=== PATIENT | male | born 1970 | race Caucasian/White ===

== ENCOUNTER 2017-08-11 06:18 | Inpatient (IN) | payer OTHER, BC ==
[2017-08-07 15:23] VITALS: BMI 29.3
[2017-08-11] MEDS ORDERED: HEPARIN NA (PORCINE) 5,000 UNITS/ML 1ML VIAL ONE (08:04)
[2017-08-11] MEDS ORDERED: THROMBIN (BOVINE) 5,000 UNIT VIAL TP ONE (08:05)
[2017-08-11] MEDS ORDERED: fentaNYL CITRATE 250 MCG/5 ML VIAL ONE ×2 (08:10→11:16)
[2017-08-11] MEDS ORDERED: ROCURONIUM BROMIDE 50 MG/5 ML VIAL ONE ×2 (08:11→09:33)
[2017-08-11] MEDS ORDERED: PROPOFOL 20 ML ONE ×13 (08:11→13:04)
[2017-08-11] MEDS ORDERED: MIDAZOLAM HCL 2 MG/2 ML SINGLE DOSE VIAL ONE (08:11)
[2017-08-11] MEDS ORDERED: LIDOCAINE HCL/PF 2% SDV 5ML VIAL ONE (08:12)
[2017-08-11] MEDS ORDERED: SODIUM CHLORIDE 0.9% P/F 10 ML VIAL IJ ONE ×3 (08:36→11:55)
[2017-08-11] MEDS ORDERED: ceFAZolin SODIUM 1 GM VIAL ONE ×2 (08:36→11:55)
[2017-08-11] MEDS ORDERED: ceFAZolin SODIUM 1 GM VIAL IVPB ONE (08:38)
[2017-08-11] MEDS ORDERED: VANCOMYCIN 1,000 MG VIAL (RESTRICTED TO ID ONLY) ONE (08:40)
[2017-08-11] MEDS ORDERED: TRANEXAMIC ACID 1000 MG/10 ML VIAL ONE ×2 (08:43→10:23)
[2017-08-11] MEDS ORDERED: ONDANSETRON 4 MG/2 ML VIAL ONE (08:43)
[2017-08-11] MEDS ORDERED: VANCOMYCIN 1,000 MG VIAL (RESTRICTED TO ID ONLY) IVPB ONE (08:45)
[2017-08-11] MEDS ORDERED: NEOSTIGMINE METHYLSULFATE 0.5 MG/ML - 10 ML MDV ONE (13:16)
[2017-08-11] MEDS ORDERED: GLYCOPYRROLATE 0.2 MG/1 ML VIAL ONE (13:16)
[2017-08-11] MEDS ORDERED: BENZOIN/ALOE VERA/STORAX/TOLU 58 ML BOTTLE ONE (13:24)
--- NOTE | 2017-08-11 13:54 | PN ---
Progress Note (short form) - Note Progress Note: 46M s/p L4, L5, S1 laminectomies, L4-5 & L5-S1 PLIF, L4-S1 PISF POD #0. -Admit to ICU post-op. 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 -Mechanical DVT PPx. only: MALLORY's, SCD's. -Incentive spirometry; aggressive pulmonary toilet. -PT/OT/Rehab, OOB. -WBAT B/L LE. -f/u drain output. -d/c Chen catheter when ambulating. -NPO until flatus. -Ana-op abx X 24 hrs.: Ancef, Vanc. -Admit to care of medical hospitalist team. -Will follow. Gael Phipps MD (Orthopaedic Surgery).
[2017-08-11] MEDS ORDERED: diazePAM CARPU-JECT 10 MG/2 ML DISP.SYRIN IVPUSH PRN (13:58)
[2017-08-11] MEDS ORDERED: ONDANSETRON 4 MG/2 ML VIAL IVPUSH PRN ×2 (13:58→14:00)
--- NOTE | 2017-08-11 13:58 | OP ---
Operative Note - Note: Operative Date: 08/11/17 Pre-Operative Diagnosis: L4-5, L5-S1 symptomatic spinal stenosis Operation: 1. L4, L5, S1 laminectomies. 2. L4-5 & L5-S1 PLIF. 3. L4-S1 PISF Post-Operative Diagnosis: Same as Pre-op Surgeon: Adal Phipps Supervising Nurse: Gael Phipps (Co-Surgeon) Anesthesiologist/AMBULATORY CARE: [facility] Anesthesia: General Specimens Removed: Bone, soft tissue, disk Estimated Blood Loss (mls): 1,100 Drains & Tubes with Location: 1 x superficial HemoVac Blood Volume Replaced (mls): 500 (Cell Saver) Fluid Volume Replaced (mls): 1,300 Operative Report Dictated: Yes
[2017-08-11] MEDS ORDERED: HYDROmorphone *PCA* 10MG/50ML DISP.SYRIN PCA SCH (14:00)
[2017-08-11] MEDS ORDERED: PROMETHAZINE HCL 25 MG/1 ML VIAL IVPB PRN (14:00)
[2017-08-11] MEDS ORDERED: LACTATED RINGERS SOLUTION 1,000 ML IV SCH (14:00)
[2017-08-11] MEDS ORDERED: DEXAMETHASONE SOD PHOSPHATE 4 MG/1 ML VIAL IVPUSH PRN (14:00)
[2017-08-11] MEDS ORDERED: HYDROmorphone *PCA* 6MG/30ML DISP.SYRIN PCA ONE ×2 (14:07→19:54)
[2017-08-11] MEDS: ACETAMINOPHEN 1000 MG/100 ML VIAL (NON FORMULARY) IVPB SCH ×2 (14:20→22:13)
[2017-08-11] MEDS: LACTATED RINGERS SOLUTION 1,000 ML IV SCH (15:20)
[2017-08-11] MEDS ORDERED: LORazepam 2 MG/ML SDV VIAL IVPUSH PRN (16:05)
[2017-08-11] MEDS: ALBUTEROL SO4 18 GM HFA INHALER IH SCH ×3 (16:10→22:26)
[2017-08-11] MEDS: HYDROmorphone *PCA* 6MG/30ML DISP.SYRIN PCA SCH ×2 (16:12→20:33)
[2017-08-11] MEDS ORDERED: KETOROLAC TROMETHAMINE 30 MG/1 ML VIAL IVPUSH ONE (16:35)
--- NOTE | 2017-08-11 17:11 | CONSULT ---
Consultation: REQUESTING PROVIDER: CONSULT REQUEST: We have been asked to medically evaluate this patient for post- op management. HISTORY OF PRESENT ILLNESS: 46M with PMH of back pain, PTSD, anxiety, chronic sinusitis (first-responder on 01/27), presents for back surgery with Dr. Phipps. Surgery went well, 500ml blood loss. Pt endorses significant back pain now. Pt reports no bowel movement in 2 days related to nerves regarding upcoming surgery. Pt denies fever, chills, headache, nausea, vomiting, sob, chest pain, abdominal pain. 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 [employer] REVIEW OF SYSTEMS: CONSTITUTIONAL: Absent: fever, chills, diaphoresis, generalized weakness HEENT: Absent: rhinorrhea, nasal congestion, throat pain, ear pain, eye pain, visual changes CARDIOVASCULAR: Absent: chest pain, palpitations, irregular heart rate, lightheadedness, peripheral edema RESPIRATORY: Absent: cough, shortness of breath, wheezing, stridor, hemoptysis GASTROINTESTINAL: Absent: abdominal pain, abdominal distension, nausea, vomiting, diarrhea, constipation GENITOURINARY: Absent: dysuria, frequency, hematuria MUSCULOSKELETAL: back pain Absent: joint swelling, neck pain SKIN: Absent: rash, itching, pallor HEMATOLOGIC/IMMUNOLOGIC: Absent: easy bleeding, easy bruising, lymphadenopathy NEUROLOGIC: Absent: headache, focal weakness or paresthesias, dizziness PSYCHIATRIC: anxiety Absent: depression, suicidal or homicidal ideation, hallucinations. PHYSICAL EXAMINATION Vital Signs - 24 hr 08/11/17 08/11/17 08/11/17 07:19 07:20 13:49 Temperature 98.1 F 97.7 F Pulse Rate 84 100 H Respiratory 16 18 Rate Blood Pressure 130/88 107/72 O2 Sat by Pulse 100 98 Oximetry (%) 08/11/17 08/11/17 08/11/17 14:05 14:15 14:20 Temperature Pulse Rate 93 H 80 80 Respiratory 16 16 16 Rate Blood Pressure 109/75 93/64 93/64 O2 Sat by Pulse 100 100 Oximetry (%) 08/11/17 08/11/17 08/11/17 14:35 14:45 14:50 Temperature Pulse Rate 91 H 80 80 Respiratory 16 16 16 Rate Blood Pressure 108/64 99/72 99/72 O2 Sat by Pulse 100 100 Oximetry (%) 08/11/17 08/11/17 08/11/17 15:05 15:20 15:35 Temperature 98.0 F 98.4 F Pulse Rate 83 74 88 Respiratory 16 18 10 L Rate Blood Pressure 100/76 113/72 111/75 O2 Sat by Pulse 100 97 Oximetry (%) 08/11/17 16:00 Temperature 98.4 F Pulse Rate 92 H Respiratory 10 L Rate Blood Pressure 111/75 O2 Sat by Pulse Oximetry (%) GENERAL: Awake, alert, and fully oriented, in no acute distress. LUNGS: Breath sounds equal, clear to auscultation bilaterally. No wheezes, and no crackles. No accessory muscle use. HEART: Regular rate and rhythm, normal S1 and S2 without murmur, rub or gallop. ABDOMEN: Soft, nontender, not distended, normoactive bowel sounds, no guarding. BACK: incision not visualized. 1 superficial HemoVac drain present. LOWER EXTREMITIES: Warm, well-perfused. No calf tenderness. No peripheral edema. NEUROLOGICAL: Cranial nerves II-XII grossly intact. No facial droop. Able to move all 4 extremities. Sensation intact and symmetric throughout. Normal speech. PSYCHIATRIC: Cooperative. Good eye contact. Appropriate mood and affect. SKIN: Warm, dry, normal turgor, no rashes or lesions noted. Laboratory Results - last 24 hr 08/11/17 06:32 Blood Type A POSITIVE Antibody Screen Negative Active Medications Generic Name Dose Route Start Last Admin Trade Name Freq PRN Reason Stop Dose Admin Acetaminophen 1,000 mg 08/11/17 14:00 08/11/17 14:20 Ofirmev Injection - IVPB 08/12/17 06:01 1,000 mg Q8H MARISELA Administration Albuterol Sulfate 1 - 2 puff 08/11/17 14:00 08/11/17 16:10 Ventolin Hfa Inhaler - IH Not Given QID [facility] Cefazolin Sodium/Dextrose 2 gm 08/11/17 23:00 Ancef 2 Gm Premixed Ivpb - IVPB 08/12/17 07:01 Q8H [facility] Dexamethasone Sodium Phosphate 4 mg 08/11/17 14:00 Decadron Injection - IVPUSH ONCE PRN NAUSEA AND/OR VOMITING Fentanyl 50 mcg 08/11/17 13:59 08/11/17 14:10 Sublimaze Injection - IVPUSH 50 mcg [id number] PRN Administration PAIN-PACU ORDER X 4 DOSES ONLY Hydromorphone HCl 0 mg 08/11/17 15:32 08/11/17 16:12 Dilaudid Vice Investigator - LANGUAGE PATHOLOGIST 08/18/17 14:00 Not Given LANGUAGE PATHOLOGIST MARISELA Protocol Lactated Ringer's 1,000 mls @ 100 mls/hr 08/11/17 14:00 08/11/17 15:20 Lactated Ringers Solution IV 0 mls ASDIR MARISELA Administration Vancomycin HCl 1,000 mg/ 250 mls @ 250 mls/hr 08/11/17 20:00 Dextrose IVPB 08/11/17 20:59 ONCE ONE Lorazepam 2 mg 08/11/17 16:05 Ativan Injection - IVPUSH Q6H PRN ANXIETY Ondansetron HCl 4 mg 08/11/17 13:58 Zofran Injection IVPUSH Q6H PRN NAUSEA AND/OR VOMITING Ondansetron HCl 4 mg 08/11/17 14:00 Zofran Injection IVPUSH Q4H PRN NAUSEA AND/OR VOMITING Promethazine HCl 12.5 mg 08/11/17 14:00 Phenergan Injection - IVPB Q6H PRN NAUSEA AND/OR VOMITING Zolpidem Tartrate 10 mg 08/11/17 22:00 Ambien - PO HS PRN INSOMNIA ASSESSMENT/PLAN: 46M with PMH of back pain, PTSD, anxiety, chronic sinusitis (first-responder on 01/27), presents for back surgery with Dr. Phipps. # back surgery - s/p L4/L5/S1 laminectomies, L4-5 and L5-S1 PLIF, L4-S1 Posterior Instrumented Spinal Fusion - POD #0 - post-op care per Dr. Phipps: WBAT, OOB, - Ana-op antibiotics x 24 hrs: Ancef and Vancomycin - pain control with Dilaudid LANGUAGE PATHOLOGIST pump (0mg basal rate, 0.2mg demand) and Ofirmev q8hr x 3 doses - Incentive spirometry - f/u drain output - Zofran prn for nausea # chronic sinusitis - continue home med of Albuterol - consider resuming home med of Claritin # anxiety - continue home med of Xanax # insomnia - continue home med of Ambien # FEN - Fluids: LR @ 100 ml/hr - Electrolytes: will monitor - Nutrition: npo until flatus # Prophylaxis - DVT ppx with susan SCDs - deconditioning ppx with PT Dispo: We will continue to follow the patient. Thank you for this consultative opportunity. Visit type - Emergency Visit Emergency Visit: Yes ED Registration Date: 08/11/17 Care time: The patient presented to the Emergency Department on the above date and was hospitalized for further evaluation of their emergent condition. - New Patient This patient is new to me today: Yes Date on this admission: 08/11/17 - Critical Care Critical Care patient: Yes Total Critical Care Time (in minutes): 45 Critical Care Statement: The care of this patient involved high complexity decision making to prevent further life threatening deterioration of the patient 's condition and/or to evaluate & treat vital organ system(s) failure or risk of failure.
--- NOTE | 2017-08-11 17:49 | HP ---
CHIEF COMPLAINT: "i just had back surgery and im in pain" HISTORY OF PRESENT ILLNESS: This is a 46 yo M with PMH of back pain s/p discsectomy L3-S1 2011, PTSD, migraine, anxiety, chronic sinusitis whp presents POD 0 s/p L4/L5/S1 laminectomies, L4-5 and L5-S1 PLIF, L4-S1 Posterior Instrumented Spinal Fusion. Surgery was uncomplicated with 500cc blood loss. back pain begain in 2011 due to job related injury and has not been alleviated by initial surgery for any significant amount of time. He reports pain radiating down bpoth legs with LLE weakness > RLE, b/l toe numbness, walks with limp and uses cane to get out of car. Max walking distance 1-3 [address] due to pain. Takes oxycodone 30 for pain PRN. Denies saddle anesthesia or loss of bowel control. He currently reports 10/10 back pain radiating to both lateral thighs when lying flat, alleviated by lying on the side. Last BM was 2 days ago but denies chronic constipation. has history of frequents sinus infections for which he is often on augmentin, last dose sat. he denies f/c, h/a, CP, spb, n/v/d, abd pain. 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 Smoking: denies Alcohol: denies Drugs: denies Family History: noncontributory Allergies prednisone Adverse Reaction (Mild, Verified 08/07/17 15:26) Hives "hives around buttocks and waist when combined with other meds" took prednisone two months ago without a reaction HOME MEDICATIONS: Home Medications Medication Instructions Recorded Acetaminophen/Caffeine/Butalb 1 tab PO Q4H 08/07/17 [Fioricet -] Albuterol Sulfate Inhaler - 1 - 2 inh PO QID 08/07/17 [Ventolin Hfa Inhaler -] Alprazolam [Xanax] 2 mg PO PRN 08/07/17 Amoxicillin - [Amoxicillin 875mg 875 mg PO BID 08/07/17 Tablet -] Loratadine [Claritin -] 10 mg PO DAILY 08/07/17 Oxycodone HCl [Oxycodone HCl ER] 30 mg PO BID 08/07/17 Zolpidem Tartrate 10 mg PO HS 08/07/17 REVIEW OF SYSTEMS CONSTITUTIONAL: Absent: fever, chills, diaphoresis, loss of appetite, weight change HEENT: Absent: throat pain, difficulty swallowing, visual changes CARDIOVASCULAR: Absent: chest pain, syncope, palpitations, irregular heart rate RESPIRATORY: Absent: cough, shortness of breath, GASTROINTESTINAL: Absent: abdominal pain, abdominal distension, nausea, vomiting, diarrhea GENITOURINARY: Absent: dysuria MUSCULOSKELETAL: Absent: myalgia SKIN: Absent: rash, itching, pallor HEMATOLOGIC/IMMUNOLOGIC: Absent: easy bleeding, easy bruising ENDOCRINE: Absent: unexplained weight gain, unexplained weight loss NEUROLOGIC: Absent: headache, seizure, mental status changes, bladder or bowel incontinence PSYCHIATRIC: Absent: anxiety, depression PHYSICAL EXAMINATION Vital Signs - 24 hr 08/11/17 08/11/17 08/11/17 07:19 07:20 13:49 Temperature 98.1 F 97.7 F Pulse Rate 84 100 H Respiratory 16 18 Rate Blood Pressure 130/88 107/72 O2 Sat by Pulse 100 98 Oximetry (%) 08/11/17 08/11/17 08/11/17 14:05 14:15 14:20 Temperature Pulse Rate 93 H 80 80 Respiratory 16 16 16 Rate Blood Pressure 109/75 93/64 93/64 O2 Sat by Pulse 100 100 Oximetry (%) 08/11/17 08/11/17 08/11/17 14:35 14:45 14:50 Temperature Pulse Rate 91 H 80 80 Respiratory 16 16 16 Rate Blood Pressure 108/64 99/72 99/72 O2 Sat by Pulse 100 100 Oximetry (%) 08/11/17 08/11/17 08/11/17 15:05 15:20 15:35 Temperature 98.0 F 98.4 F Pulse Rate 83 74 88 Respiratory 16 18 10 L Rate Blood Pressure 100/76 113/72 111/75 O2 Sat by Pulse 100 99 Oximetry (%) 08/11/17 08/11/17 16:00 16:15 Temperature 98.4 F Pulse Rate 92 H 88 Respiratory 10 L 10 L Rate Blood Pressure 111/75 111/75 O2 Sat by Pulse Oximetry (%) GENERAL: Awake, alert, and fully oriented, in no acute distress. HEAD: Normal with no signs of trauma. EYES: Pupils equal, round and reactive to light, extraocular movements intact, sclera anicteric, conjunctiva clear. No lid lag. EARS, NOSE, THROAT: nares patent, oropharynx with postnasal drip. Moist mucous membranes. NECK: supple LUNGS: Breath sounds equal, clear to auscultation bilaterally. HEART: tachy rate and regular rhythm, normal S1 and S2 ABDOMEN: Soft, nontender, not distended, normoactive bowel sounds, no guarding, no rebound, no masses. MUSCULOSKELETAL: No CVA tenderness. Drain in place with saguineous discharge UPPER EXTREMITIES: 2+ pulses, warm, well-perfused. No cyanosis. No clubbing. No peripheral edema. LOWER EXTREMITIES: 2+ pulses, warm, well-perfused. No calf tenderness. No peripheral edema. NEUROLOGICAL: Cranial nerves II-XII intact. Normal speech. 5/5 srengt UE b/l. 4 + strenght RLE, 4- strenght LLE, slight numbness L toes, 1+ patellar reflexes b/ l PSYCHIATRIC: Cooperative. Good eye contact. Appropriate mood and affect. SKIN: Warm, dry Laboratory Results - last 24 hr 08/11/17 06:32 Blood Type A POSITIVE Antibody Screen Negative ASSESSMENT/PLAN: This is a 46 yo M with PMH of back pain s/p discsectomy L3-S1 2012, PTSD, migraine, anxiety, chronic sinusitis whp presents POD 0 s/p L4/L5/S1 laminectomies, L4-5 and L5-S1 PLIF, L4-S1 Posterior Instrumented Spinal Fusion. Chronic back pain POD 0 s/p L4/L5/S1 laminectomies, L4-5 and L5-S1 PLIF, L4-S1 Posterior Instrumented Spinal Fusion -Dr Phipps instructions appreciated -WBAT, OOB, -Ancef, Vancomycin x 24 hr -IV tylenol, Dilaudid SEISMOGRAPH COMPUTER, fentanyl -Zofran prn -NS @ 100 -strict I and O -NPO until passes flatus -incentive spirometry Constipation -secondary to opiates -colace, IV hydration chronic sinusitis -no acute symptoms Asthma -albuterol nebs prn anxiety -ativan PRN Insomnia -ambien HS PPX: SCDs Dispo: ICU care Problem List - Problem (1) Back pain Code(s): M54.9 - DORSALGIA, UNSPECIFIED (2) Previous back surgery Code(s): Z98.890 - OTHER SPECIFIED POSTPROCEDURAL STATES (3) H/O spinal fusion Code(s): Z98.1 - ARTHRODESIS STATUS (4) Post-operative nausea and vomiting Code(s): R11.2 - NAUSEA WITH VOMITING, UNSPECIFIED; Z98.890 - OTHER SPECIFIED POSTPROCEDURAL STATES (5) Anxiety Code(s): F41.9 - ANXIETY DISORDER, UNSPECIFIED (6) Sinusitis Code(s): J32.9 - CHRONIC SINUSITIS, UNSPECIFIED (7) Insomnia Code(s): G47.00 - INSOMNIA, UNSPECIFIED (8) PTSD (post-traumatic stress disorder) Code(s): F43.10 - POST-TRAUMATIC STRESS DISORDER, UNSPECIFIED Visit type - Emergency Visit Emergency Visit: No - New Patient This patient is new to me today: Yes Date on this admission: 08/11/17 - Critical Care Critical Care patient: Yes Total Critical Care Time (in minutes): 45 Critical Care Statement: The care of this patient involved high complexity decision making to prevent further life threatening deterioration of the patient 's condition and/or to evaluate & treat vital organ system(s) failure or risk of failure.
[2017-08-11 18:27] LABS: BASO % 0.5 % (0-2.0); EOS % 1.9 % (0-4.5); HEMOGLOBIN 13.3 GM/dL (11.7-16.9); LYMPH % 19.3 % (8-40); MCH 26.9 pg (25.7-33.7); MCHC 34.2 g/dl (32.0-35.9); MEAN CELL VOLUME 78.7 fl (80-96); MEAN PLT VOLUME 9.4 fl (7.5-11.1); MONO % 7.2 % (3.8-10.2); NEUT % 71.1 % (42.8-82.8); PLATELET COUNT 133 K/MM3 (134-434); RBC 4.96 M/mm3 (4.00-5.60); RDW 13.2 % (11.9-15.9); WHITE BLOOD COUNT 11.1 K/mm3 (4.0-10.0)
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
[2017-08-11] MEDS: LORazepam 2 MG/ML SDV VIAL IVPUSH PRN (18:56)
[2017-08-11] MEDS: LORATADINE 10 MG TABLET PO SCH (18:58)
[2017-08-11] MEDS: DOCUSATE SODIUM 100 MG CAPSULE (FP) PO SCH (18:58)
[2017-08-11] MEDS ORDERED: ALBUTEROL SO4 0.083% IH SOL 2.5 MG/3 ML VIAL.NEB. NEB PRN (19:00)
[2017-08-11 19:08] LABS: ALBUMIN 3.1 g/dl (3.4-5.0); ANION GAP 6 (8-16); BLOOD UREA NITROGEN 19 mg/dL (7-18); CALCIUM 7.8 mg/dL (8.5-10.1); CHLORIDE 108 mmol/L (98-107); CO2 26 mmol/L (21-32); GLUCOSE,RANDOM 103 mg/dL (74-106); MAGNESIUM 1.7 mg/dL (1.8-2.4); PHOSPHOROUS 4.5 mg/dL (2.5-4.9); POTASSIUM 4.2 mmol/L (3.5-5.1); SGOT/AST 33 U/L (15-37); SGPT/ALT 36 U/L (12-78); SODIUM 140 mmol/L (136-145); TOT PROT 5.3 g/dl (6.4-8.2)
[2017-08-11 19:09] LABS: ALK PHOS 72 U/L (45-117)
--- NOTE | 2017-08-11 19:12 | PN ---
Teaching Attending Note Name of Resident: Ventura Corona ATTENDING PHYSICIAN STATEMENT I saw and evaluated the patient. I reviewed the resident's note and discussed the case with the resident. I agree with the resident's findings and plan as documented. SUBJECTIVE: 46 y/o man with h/o PTSD, lower back pain s/p discectomy in 2011, chronic sinusitis and anxiety who presented for lower back surgery now s/p L4-s1 decompression and fusion . now in ICU. after his sx in he felt better, then condition worsened and developed lower back pain with shooting pain down his groins and legs withnumbness in lE . now he feels some pain in lower back , anxious , no numbness, no pain in LE . he reports asthma sx daily with nocturnal use of his Alb every night . only on Alb inhaler OBJECTIVE: NAD , AAOx3. HEENT: MMM, no ALAP , EOMI Lungs: scatered wheezes. CV; RRR Abd: sfot, NT, ND < NL BS Ext: no edema Neuro: EOMI, round equal pupils reactive to light , tongue at mid line . strength 5/5 in upper ext proximally and distally. LE : 4/5 in hip flexion b/l. knee flexion and ankle dorsiflexion/plantar flexion b/l. sensation to ligh ttouch decreased on L big toe otherwise NL. reflexes 2+ knee jerk and biceps b/l ASSESSMENT AND PLAN: 46 y/o man with h/o PTSD, lower back pain s/p discectomy in 2011, chronic sinusitis and anxiety who presented for L4-S1 decompression and fusion 1- S/P L4-S1 decompression and fusion : POD 0 - WBAT - pain control - NPO until flatus - follow drain - obtain labs and monitor Hb 2-chronic Moderate persistent Asthma : - start Albuterol Nebs as needed - start Advair BID 3- h/o PTSD and anxiety : ativan PRN. 4- DVT PX : SCds /Teds .
[2017-08-11] MEDS ORDERED: VANCOMYCIN 1 GRAM (PRE-DOCKED) 1,000 MG/250 ML BAG IVPB ONE (20:00)
[2017-08-11] MEDS ORDERED: VANCOMYCIN 1,000 MG in DEXTROSE 5%-WATER - 250 ML IVPB ONE (20:00)
[2017-08-11] MEDS ORDERED: MAGNESIUM SULF 50% (8.12 MEQ/2 ML-1 GM VIAL) IVPB ONE (20:34)
--- NOTE | 2017-08-11 21:06 | CONSULT ---
Consult Consult Specialty:: Pulm/CCM Reason for Consultation:: s/p L4-S1 decompression and fusion. - History of Present Illness Chief Complaint: back pain History of Present Illness: This is a 46 yo man w/ Asthma, chronic sinusitis, anxiety, PTSD r/t 01/27, lower back pain w/ numbness s/p discectomy in 2011 now POD #0: L4-s1 decompression and fusion. Transferred to the ICU Post operatively. In the ICU he is awake and alert denies: ARCE/CP/SOB/n/v/ numbness mild pain at surgical site. One exam Shant drain w/ sanguineous drainage noted. - Past Medical History Pulmonary: Yes: Asthma, Other (chronic sinusitis ) Musculoskeletal: Yes: Chronic low back pain - Past Surgical History Past Surgical History: Yes: Laminectomy - Alcohol/Substance Use Hx Alcohol Use: No - Smoking History Smoking history: Never smoked - Social History Usual Living Arrangement: With Spouse ADL: Independent Home Medications - Allergies Allergies/Adverse Reactions: Allergies Allergy/AdvReac Type Severity Reaction Status Date / Time prednisone AdvReac Mild Hives Verified 08/07/17 15:26 - Home Medications Home Medications: Ambulatory Orders Acetaminophen/Caffeine/Butalb [Fioricet -] 1 tab PO Q4H 08/07/17 Albuterol Sulfate Inhaler - [Ventolin Hfa Inhaler -] 1 - 2 inh PO QID 08/07/17 Alprazolam [Xanax] 2 mg PO PRN 08/07/17 Amoxicillin - [Amoxicillin 875mg Tablet -] 875 mg PO BID 08/07/17 Loratadine [Claritin -] 10 mg PO DAILY 08/07/17 Oxycodone HCl [Oxycodone HCl ER] 30 mg PO BID 08/07/17 Zolpidem Tartrate 10 mg PO HS 08/07/17 Family Disease History - Family Disease History Family History: Unremarkable Review of Systems - Review of Systems Constitutional: reports: No Symptoms Respiratory: reports: Cough Neurological: reports: No Symptoms Psychiatric: reports: Anxiety, Other (PTSD) Physical Exam Vital Signs: Vital Signs Temperature 98.3 F 08/11/17 18:00 Pulse Rate 112 H 08/11/17 19:50 Respiratory Rate 15 08/11/17 19:50 Blood Pressure 132/81 08/11/17 19:50 O2 Sat by Pulse Oximetry (%) 99 08/11/17 15:35 Current Medications Acetaminophen (Ofirmev Injection -) 1,000 mg IVPB Q8H [facility] Stop: 08/12/17 06:01 Last Admin: 08/11/17 14:20 Dose: 1,000 mg Albuterol Sulfate (Ventolin Hfa Inhaler -) 1 - 2 puff IH QID [facility] Last Admin: 08/11/17 18:00 Dose: Not Given Albuterol Sulfate (Ventolin 0.083% Nebulizer Soln -) 1 amp NEB Q4H PRN PRN Reason: SHORT OF BREATH/WHEEZING Cefazolin Sodium/Dextrose (Ancef 2 Gm Premixed Ivpb -) 2 gm IVPB Q8H [facility] Stop: 08/12/17 07:01 Docusate Sodium (Colace -) 100 mg PO DAILY [facility] Last Admin: 08/11/17 18:58 Dose: Not Given Fentanyl (Sublimaze Injection -) 50 mcg IVPUSH [id number] PRN PRN Reason: PAIN-PACU ORDER X 4 DOSES ONLY Last Admin: 08/11/17 14:10 Dose: 50 mcg Hydromorphone HCl (Dilaudid Filler Picker -) 0 mg STOCKHOLDER STOCKHOLDER [facility] PRN Reason: Protocol Stop: 08/18/17 14:00 Last Admin: 08/11/17 20:33 Dose: 6 mg Lactated Ringer's (Lactated Ringers Solution) 1,000 mls @ 100 mls/hr IV ASDIR [facility] Last Admin: 08/11/17 15:20 Dose: 0 mls Loratadine (Claritin -) 10 mg PO DAILY [facility] Last Admin: 08/11/17 18:58 Dose: Not Given Lorazepam (Ativan Injection -) 0.5 mg IVPUSH Q6H PRN PRN Reason: ANXIETY Last Admin: 08/11/17 18:56 Dose: 0.5 mg Ondansetron HCl (Zofran Injection) 4 mg IVPUSH Q6H PRN PRN Reason: NAUSEA AND/OR VOMITING Fluticasone/Salmeterol (Advair 100mcg/50mcg -) 1 puff IH BID [facility] Zolpidem Tartrate (Ambien -) 10 mg PO HS PRN PRN Reason: INSOMNIA Constitutional: Yes: Well Nourished, No Distress, Calm Eyes: Yes: Conjunctiva Clear, EOM Intact HENT: Yes: Normocephalic Cardiovascular: Yes: Regular Rate and Rhythm, S1 Respiratory: Yes: Wheezes Gastrointestinal: Yes: Normal Bowel Sounds, Soft Extremities: Yes: WNL Edema: No Integumentary: Yes: Tattoos Wound/Incision: Yes: Clean/Dry Neurological: Yes: WNL, Alert, Oriented Psychiatric: Yes: Alert, Oriented Labs: CBC, BMP 08/11/17 18:21 08/11/17 18:21 Problem List - Problems (1) Asthma Code(s): J45.909 - UNSPECIFIED ASTHMA, UNCOMPLICATED (2) Anxiety Code(s): F41.9 - ANXIETY DISORDER, UNSPECIFIED (3) Back pain Code(s): M54.9 - DORSALGIA, UNSPECIFIED (4) H/O spinal fusion Code(s): Z98.1 - ARTHRODESIS STATUS (5) PTSD (post-traumatic stress disorder) Code(s): F43.10 - POST-TRAUMATIC STRESS DISORDER, UNSPECIFIED Assessment/Plan a/p: 46 yo man w/ asthma, chronic sinusitis, anxiety, PTSD r/t 01/27, lower back pain w/ numbness s/p discectomy in 2012 now POD #0: L4-s1 decompression and fusion. -pain control -anxiolisis prn -bowel regimen -advance activity per surgery -NPO until flatus -02 for sat >90% -Albuterol prn -Incentive spirometry -early PT/OT -trend Hgb post op w/ normal transfusion thresholds -monitor surgical drainage -glucose control -SCD for DVT prophylaxis until chemoprophylaxis ok by surgery Natasha BAUTISTA Pulm/CCM CCT: 35m.
[2017-08-11] MEDS ORDERED: MAGNESIUM SULF 50% (8.12 MEQ/2 ML-1 GM VIAL) ONE (22:09)
[2017-08-11] MEDS: FLUTICASONE/SALMETEROL 100 MCG/50 MCG DISKUS IH SCH (22:14)
[2017-08-11] MEDS: ceFAZolin 2 GRAM PREMIX BAG IVPB SCH (22:14)
[2017-08-11] MEDS ORDERED: ALPRAZolam 0.25 MG TABLET PO ONE (22:37)
[2017-08-11] MEDS: ZOLPIDEM TARTRATE 5 MG TABLET PO PRN (22:44)
[2017-08-12] MEDS ORDERED: KETOROLAC TROMETHAMINE 30 MG/1 ML VIAL IVPUSH ONE (01:46)
[2017-08-12] MEDS ORDERED: ALBUTEROL SO4 18 GM HFA INHALER IH PRN (01:48)
[2017-08-12] MEDS ORDERED: HYDROmorphone *PCA* 6MG/30ML DISP.SYRIN PCA ONE ×2 (05:35→16:05)
[2017-08-12] MEDS: HYDROmorphone *PCA* 6MG/30ML DISP.SYRIN PCA SCH ×7 (05:39→17:39)
[2017-08-12] MEDS: ACETAMINOPHEN 1000 MG/100 ML VIAL (NON FORMULARY) IVPB SCH (05:40)
[2017-08-12] MEDS: ceFAZolin 2 GRAM PREMIX BAG IVPB SCH (06:11)
[2017-08-12 07:00] LABS: HEMATOCRIT 35.6 % (35.4-49); HEMOGLOBIN 11.9 GM/dL (11.7-16.9); MCH 26.8 pg (25.7-33.7); MCHC 33.4 g/dl (32.0-35.9); MEAN CELL VOLUME 80.3 fl (80-96); MEAN PLT VOLUME 10.1 fl (7.5-11.1); PLATELET COUNT 108 K/MM3 (134-434); RBC 4.43 M/mm3 (4.00-5.60); RDW 13.4 % (11.9-15.9); WHITE BLOOD COUNT 7.7 K/mm3 (4.0-10.0)
[2017-08-12 07:16] LABS: ANION GAP 7 (8-16); BLOOD UREA NITROGEN 18 mg/dL (7-18); CALCIUM 7.8 mg/dL (8.5-10.1); CHLORIDE 103 mmol/L (98-107); CO2 30 mmol/L (21-32); CREATININE 0.9 mg/dL (0.7-1.3); GLUCOSE,RANDOM 102 mg/dL (74-106); POTASSIUM 4.4 mmol/L (3.5-5.1); SODIUM 140 mmol/L (136-145)
[2017-08-12] MEDS: DOCUSATE SODIUM 100 MG CAPSULE (FP) PO SCH (09:50)
[2017-08-12] MEDS: FLUTICASONE/SALMETEROL 100 MCG/50 MCG DISKUS IH SCH ×2 (09:50→22:25)
--- NOTE | 2017-08-12 09:53 | OP ---
DATE OF OPERATION: 08/11/2017 SURGEON: Adal Phipps MD CO-SURGEON: Gael Phipps MD PREOPERATIVE DIAGNOSIS: Lumbar spine stenosis due to previously failed spinal surgery with associated lumbar spinal stenosis at L4-5, L5-S1 secondary to diskogenic disease and associated segmental instability and kyphosis. POSTOPERATIVE DIAGNOSIS: Lumbar spine stenosis due to previously failed spinal surgery with associated lumbar spinal stenosis at L4-5, L5-S1 secondary to diskogenic disease and associated segmental instability and kyphosis. OPERATION PERFORMED: 1. Laminectomy and undercutting facetectomy, L4 and L5. 2. Posterior lumbar interbody fusion, L4-5 and L5-S1. 3. Insertion of cages, L4-5 and L5-S1 with autologous bone graft. 4. Pedicle screw instrumentation, L4, L5, S1. 5. Posterolateral arthrodesis at L4, L5, S1. 6. Austin-Otero osteotomy, L4-5, left- and right-hand side. 7. Complex wound closure, 15 cm. ANESTHESIA: General. ANTIBIOTICS GIVEN: Kefzol 2 g, vancomycin 1 g preoperative, Kefzol 1 g given intraoperatively. Use of biplane fluoroscopy and intraoperative neuromonitoring utilized. BLOOD LOSS: 1.1 L; 500 mL Cell Saver blood given back to the patient. PROCEDURE: Patient correctly identified, brought in the operating room. Lumbar spine was prepped and window draped in the routine manner with Betadine scrub solution, wiped off with alcohol, DuraPrep applied. A timeout was called. Imaging was available for intraoperative evaluation. Indications, preoperative assessment for a long period of time this gentleman had a previous left-sided hemilaminotomy with diskectomy resulting in severe segmental instability and entrapment of the L5 nerve root due to L5-S1 disk degeneration, Modic level 4 changes indicative of the segmental instability, but with the passage of time, the L4-5 disk had degenerated with a large disk prolapse at that level as well. We elected to deal with this problem as well. Otherwise, he would have to return to the operating room for repeat operation. Midline incision was utilized. Dissection was taken down to the tip of the spinous process, down the spinous processes, over the lamina, exposing the facet joints of L4, L5, S1 right to the ala of the sacrum both left- and right-hand side. Subperiosteal dissection performed. Verification of levels of the lateral fluoroscopic x-rays as well as utilization of anatomical guidelines. Using Leksell rongeurs, Kerrison upcuts, as well as osteotomes to implode the lateral bone bed of the vertebral canal inwards, intervertebral canal, the entire lamina of L4 and L5 were removed, exposing the dura. No complications. With this, the superior facets were completely resected, thus providing an undercutting facetectomy and freeing the nerve roots appropriately. From the right-hand side, the disks of L4-5 and L5-S1 were identified. Epidural veins were dealt with with bipolar Bovie. The theca was retracted from right to left at the both above-mentioned levels. An annulotomy performed with an 11 blade at the L4-5 and L5-S1 disks performed in the exact same manner. Each disk was dealt with as follows. Margaret were inserted. At L4-5 and L5-S1, we used cages called TETRAfuse. Prior to the insertion of the TETRAfuse cages, the interdisk space which was completely cleared of soft tissue, this enabled packing of bone with graft. This was autologous bone graft harvested from the posterior elements, milled in a [employer] mill. The L4-5 was filled with a size 14 TETRAfuse cage. This was packed with bone graft as was the size 11 cage at L5-S1. A Austin-Otero osteotomy was performed by completely transecting the bony structures laterally to enhance a lordosis. Pedicle screws L4, L5, S1 were inserted. These measured 40 x 6.5 mm screws. Each screw was tested with intraoperative neuromonitoring, found to be completely stable and safe, well above the normal parameters for dangerous parameters. That is each measurement was well above 20 mA. Rods were contoured to the screw heads, fixed and tightened with the appropriate screw caps and the torque device. A crosslink applied. The wounds were thoroughly lavaged. Pedicle screws were all inserted by Dr. Gael Phipps as the co-surgeon. The posterolateral arthrodesis by retracting the soft tissues left- and right-hand side. The transverse processes were exposed, and a combination of autologous as well as allograft bone was inserted. Bone marrow aspirate concentrate utilized to mix into the bone graft. This was harvested from the left posterior ilium, 60 mL, was spun for the CD34 cells, mixed with the graft, packed into the interspinous process from the ala, right up to L4 left- and right-hand side. The wounds were thoroughly lavaged throughout the operation. The muscle was trimmed appropriately for damaged muscle. Following the use of retractors, closure was a complex wound closure was a measurement for 15 cm. This was with muscle 1 Vicryl fascia, 1 Vicryl subcutaneous, 1 and 2-0 Vicryl in separate layers, and a 3-0 Monocryl with Steri-Strips. Drainage: 1/8-inch Hemovac x1. MD ZEYNEP [id number]
[2017-08-12] MEDS: LORATADINE 10 MG TABLET PO SCH (09:58)
[2017-08-12] MEDS ORDERED: HYDROmorphone HCL CARPU-JECT 1 MG/1 ML DISP.SYRIN IVPUSH ONE (11:39)
--- NOTE | 2017-08-12 12:02 | PN ---
Teaching Attending Note Name of Resident: Albert Vazquez ATTENDING PHYSICIAN STATEMENT I saw and evaluated the patient. I reviewed the resident's note and discussed the case with the resident. I agree with the resident's findings and plan as documented. SUBJECTIVE: Pt seen and examined in the ICU. Pain not controlled. No nausea, vomiting. No flatus or bowel movements. OBJECTIVE: Last Vital Signs Temp Pulse Resp BP Pulse Ox 99.9 F H 91 H 16 126/80 99 08/12/17 10:00 08/12/17 11:51 08/12/17 11:51 08/12/17 11:51 08/12/17 08:56 Intake & Output 08/09/17 08/10/17 08/11/17 08/12/17 23:59 23:59 23:59 23:59 Intake Total 2950 1250 Output Total 1840 830 Balance 1110 420 Gen: uncomfortable with movements Heart: RRR Lung: decreased breath sounds at the bases Abd: soft, nontender, +BS Ext: no edema CBC, BMP 08/12/17 05:50 08/12/17 05:50 Active Medications Albuterol Sulfate (Ventolin 0.083% Nebulizer Soln -) 1 amp NEB Q4H PRN PRN Reason: SHORT OF BREATH/WHEEZING Albuterol Sulfate (Ventolin Hfa Inhaler -) 2 puff IH Q6H PRN PRN Reason: SHORT OF BREATH/WHEEZING Docusate Sodium (Colace -) 100 mg PO DAILY [facility] Last Admin: 08/12/17 09:50 Dose: 100 mg Fentanyl (Sublimaze Injection -) 50 mcg IVPUSH [id number] PRN PRN Reason: PAIN-PACU ORDER X 4 DOSES ONLY Last Admin: 08/11/17 14:10 Dose: 50 mcg Hydromorphone HCl (Dilaudid Pricing Strategist -) 6 mg FORGE OPERATOR FORGE OPERATOR MARISELA PRN Reason: Protocol Stop: 08/18/17 14:00 Last Admin: 08/12/17 11:51 Dose: 6 mg Hydromorphone HCl (Dilaudid Injection -) 1 mg IVPUSH ONCE ONE Stop: 08/12/17 11:40 Lactated Ringer's (Lactated Ringers Solution) 1,000 mls @ 100 mls/hr IV ASDIR [facility] Last Admin: 08/11/17 15:20 Dose: 0 mls Loratadine (Claritin -) 10 mg PO DAILY [facility] Last Admin: 08/12/17 09:58 Dose: 10 mg Lorazepam (Ativan Injection -) 0.5 mg IVPUSH Q6H PRN PRN Reason: ANXIETY Last Admin: 08/11/17 18:56 Dose: 0.5 mg Ondansetron HCl (Zofran Injection) 4 mg IVPUSH Q6H PRN PRN Reason: NAUSEA AND/OR VOMITING Last Admin: 08/12/17 09:50 Dose: 4 mg Fluticasone/Salmeterol (Advair 100mcg/50mcg -) 1 puff IH BID [facility] Last Admin: 08/12/17 09:50 Dose: 1 puff Zolpidem Tartrate (Ambien -) 10 mg PO HS PRN PRN Reason: INSOMNIA Last Admin: 08/11/17 22:44 Dose: 10 mg ASSESSMENT AND PLAN: Lumbar Spinal Stenosis s/p L4-S1 Laminectomies/Fusions Asthma Anxiety PTSD/Anxiety - adjust pain control - incentive spirometry - bowel regimen - rehab/PT - monitor drain output - monitor H/H - activity/garcia/PO per surgery - mechanical DVT prophylaxis
--- NOTE | 2017-08-12 12:54 | PN ---
Physical Exam: SUBJECTIVE: Patient seen and examined No acute events overnight. Pt reports that pain is moderately controlled on pain meds. He endorses an appetite, but denies passing flatus. He denies SOB, chest pain, abdominal pain, n/v, and dysuria. OBJECTIVE: Vital Signs Period Temp Pulse Resp BP Sys/Garcia Pulse Ox Last 24 Hr 97.7 F-99.9 F 74-112 10-18 93-132/64-89 97-100 GENERAL: The patient is awake, alert, and fully oriented, in no acute distress. HEENT: NC, AT LUNGS: Breath sounds equal, clear to auscultation bilaterally, no wheezes, no crackles, no accessory muscle use. HEART: Regular rate and rhythm, S1, S2 without murmur, rub or gallop. ABDOMEN: Soft, nontender, nondistended, normoactive bowel sounds, no guarding, no rebound, no hepatosplenomegaly, no masses. EXTREMITIES: 2+ pulses, warm, well-perfused, no edema. NEUROLOGICAL: Cranial nerves II through XII grossly intact, b/l LE sensory function intact, unable to lift legs off of bed 2/2 pain. Laboratory Results - last 24 hr 08/11/17 08/11/17 08/12/17 18:21 18:21 05:50 WBC 11.1 H 7.7 D RBC 4.96 4.43 Hgb 13.3 11.9 D Hct 39.0 35.6 MCV 78.7 L 80.3 MCH 26.9 26.8 MCHC 34.2 33.4 RDW 13.2 13.4 Plt Count 133 L 108 L MPV 9.4 10.1 Neutrophils % 71.1 Lymphocytes % 19.3 Monocytes % 7.2 Eosinophils % 1.9 Basophils % 0.5 Sodium 140 Potassium 4.2 Chloride 108 H Carbon Dioxide 26 Anion Gap 6 L BUN 19 H Creatinine 1.0 Creat Clearance w eGFR > 60 Random Glucose 103 Calcium 7.8 L Phosphorus 4.5 Magnesium 1.7 L Total Bilirubin 1.0 AST 33 ALT 36 Alkaline Phosphatase 72 Total Protein 5.3 L Albumin 3.1 L 08/12/17 05:50 WBC RBC Hgb Hct MCV MCH MCHC RDW Plt Count MPV Neutrophils % Lymphocytes % Monocytes % Eosinophils % Basophils % Sodium 140 Potassium 4.4 Chloride 103 Carbon Dioxide 30 Anion Gap 7 L BUN 18 Creatinine 0.9 Creat Clearance w eGFR Random Glucose 102 Calcium 7.8 L Phosphorus Magnesium Total Bilirubin AST ALT Alkaline Phosphatase Total Protein Albumin Active Medications Generic Name Dose Route Start Last Admin Trade Name Freq PRN Reason Stop Dose Admin Albuterol Sulfate 1 amp 08/11/17 19:00 Ventolin 0.083% Nebulizer Soln - NEB Q4H PRN SHORT OF BREATH/WHEEZING Albuterol Sulfate 2 puff 08/12/17 01:48 Ventolin Hfa Inhaler - IH Q6H PRN SHORT OF BREATH/WHEEZING Docusate Sodium 100 mg 08/11/17 18:45 08/12/17 09:50 Colace - PO 100 mg DAILY [facility] Administration Fentanyl 50 mcg 08/11/17 13:59 08/11/17 14:10 Sublimaze Injection - IVPUSH 50 mcg [id number] PRN Administration PAIN-PACU ORDER X 4 DOSES ONLY Hydromorphone HCl 6 mg 08/12/17 11:13 08/12/17 12:14 Dilaudid Assessor - CUFF CUTTER 08/18/17 14:00 0.4 mg CUFF CUTTER MARISELA Administration Protocol Hydromorphone HCl 1 mg 08/12/17 11:39 Dilaudid Injection - IVPUSH 08/12/17 11:40 ONCE ONE Lactated Ringer's 1,000 mls @ 100 mls/hr 08/11/17 14:00 08/11/17 15:20 Lactated Ringers Solution IV 0 mls ASDIR [facility] Administration Loratadine 10 mg 08/11/17 18:45 08/12/17 09:58 Claritin - PO 10 mg DAILY [facility] Administration Lorazepam 0.5 mg 08/11/17 18:43 08/11/17 18:56 Ativan Injection - IVPUSH 0.5 mg Q6H PRN Administration ANXIETY Ondansetron HCl 4 mg 08/11/17 13:58 08/12/17 09:50 Zofran Injection IVPUSH 4 mg Q6H PRN Administration NAUSEA AND/OR VOMITING Fluticasone/Salmeterol 1 puff 08/11/17 22:00 08/12/17 09:50 Advair 100mcg/50mcg - IH 1 puff BID [facility] Administration Zolpidem Tartrate 10 mg 08/11/17 22:00 08/11/17 22:44 Ambien - PO 10 mg HS PRN Administration INSOMNIA ASSESSMENT/PLAN: 46M w/ hx of chronic back pain s/p disectomy of L3-S1 in 2011, chronic sinusitis s/p 2 surgeries in 2002 and 2008, and asthma, who is now POD #1 s/p L4 -S1 laminectomy for spinal stenosis. Neuro #Post Op s/p L4-S1 laminectomy -Vancomycin and Ancef post op x 24 hrs -pain control: Dilaudid timber appraiser (added continuous dose), IV tylenol, and Fentanyl prn -Zofran PRN -LR @ 100 cc/hr -Incentive spirometer -PT: able to ambulate -OOB as tolerated -NPO until flatus passed -garcia discontinued as pt able to ambulate -monitor mai drain output GI #Constipation -colace 100 mg Resp #Asthma -Albuterol nebs prn Psych #Anxiety -Ativan 0.5 mg prn #Insomnia -Ambien PRN #FEN/ppx -LR @ 100 -electrolytes wnl -NPO until flatus -SCDs -no GI ppx indicated Case discussed with attending, Dr. Flores. -Albert Vazquez MD PGY1 ICU Team Visit type - Emergency Visit Emergency Visit: Yes ED Registration Date: 08/11/17 Care time: The patient presented to the Emergency Department on the above date and was hospitalized for further evaluation of their emergent condition. - New Patient This patient is new to me today: Yes Date on this admission: 08/12/17 - Critical Care Critical Care patient: Yes Total Critical Care Time (in minutes): 36 Critical Care Statement: The care of this patient involved high complexity decision making to prevent further life threatening deterioration of the patient 's condition and/or to evaluate & treat vital organ system(s) failure or risk of failure.
[2017-08-12] MEDS ORDERED: ACETAMINOPHEN 325 MG TABLET (FP) PO PRN (13:36)
--- NOTE | 2017-08-12 13:56 | PN ---
Physical Exam: SUBJECTIVE: Patient seen and examined No acute events overnight. Patient complains of pain this morning 810 radiating to his legs with numbness in posterolateral aspect of left leg. OBJECTIVE: Vital Signs Period Temp Pulse Resp BP Sys/Garcia Pulse Ox Last 24 Hr 98.0 F-99.9 F 74-112 10-18 93-132/64-89 97-100 GENERAL: Awake, alert, and fully oriented, in no acute distress. HEAD: Normal with no signs of trauma. EYES: Pupils equal, round and reactive to light, extraocular movements intact, sclera anicteric, conjunctiva clear. No lid lag. EARS, NOSE, THROAT: Nares patent, oropharynx clear without exudates. +Postnasal rhinorrhea. Moist mucous membranes. NECK: Supple without lymphadenopathy, JVD, or masses. LUNGS: Breath sounds equal, clear to auscultation bilaterally. No wheezes, and no crackles. No accessory muscle use. HEART: Tachycardic, Normal rhythm, normal S1 and S2 without murmur, rub or gallop. ABDOMEN: Soft, nontender, not distended, normoactive bowel sounds, no guarding, no rebound, no masses. No hepatomegaly or splenomegaly. MUSCULOSKELETAL: Normal range of motion at all joints. No bony deformities or tenderness. No CVA tenderness. +HARMEET drain in place--serosanginous drainage UPPER EXTREMITIES: 2+ pulses, warm, well-perfused. No cyanosis. No clubbing. No peripheral edema. LOWER EXTREMITIES: 2+ pulses, warm, well-perfused. No calf tenderness. No peripheral edema. NEUROLOGICAL: Cranial nerves II-XII intact. Strength 5/5 and sensation intact in UE proximally and distally. Lower extremities- 4/5 RLE strength, 3-4/5 LLE strength, 1+ reflexes b/l, sensation decreased in posterolateral aspect of left lower extremity PSYCHIATRIC: Cooperative. Good eye contact. Appropriate mood and affect. SKIN: Warm, dry, normal turgor, no rashes or lesions noted, normal capillary refill. Laboratory Results - last 24 hr 08/11/17 08/11/17 08/12/17 18:21 18:21 05:50 WBC 11.1 H 7.7 D RBC 4.96 4.43 Hgb 13.3 11.9 D Hct 39.0 35.6 MCV 78.7 L 80.3 MCH 26.9 26.8 MCHC 34.2 33.4 RDW 13.2 13.4 Plt Count 133 L 108 L MPV 9.4 10.1 Neutrophils % 71.1 Lymphocytes % 19.3 Monocytes % 7.2 Eosinophils % 1.9 Basophils % 0.5 Sodium 140 Potassium 4.2 Chloride 108 H Carbon Dioxide 26 Anion Gap 6 L BUN 19 H Creatinine 1.0 Creat Clearance w eGFR > 60 Random Glucose 103 Calcium 7.8 L Phosphorus 4.5 Magnesium 1.7 L Total Bilirubin 1.0 AST 33 ALT 36 Alkaline Phosphatase 72 Total Protein 5.3 L Albumin 3.1 L 08/12/17 05:50 WBC RBC Hgb Hct MCV MCH MCHC RDW Plt Count MPV Neutrophils % Lymphocytes % Monocytes % Eosinophils % Basophils % Sodium 140 Potassium 4.4 Chloride 103 Carbon Dioxide 30 Anion Gap 7 L BUN 18 Creatinine 0.9 Creat Clearance w eGFR Random Glucose 102 Calcium 7.8 L Phosphorus Magnesium Total Bilirubin AST ALT Alkaline Phosphatase Total Protein Albumin Active Medications Generic Name Dose Route Start Last Admin Trade Name Freq PRN Reason Stop Dose Admin Acetaminophen 650 mg 08/12/17 13:36 Tylenol - PO Q6H PRN FEVER Albuterol Sulfate 1 amp 08/11/17 19:00 Ventolin 0.083% Nebulizer Soln - NEB Q4H PRN SHORT OF BREATH/WHEEZING Albuterol Sulfate 2 puff 08/12/17 01:48 Ventolin Hfa Inhaler - IH Q6H PRN SHORT OF BREATH/WHEEZING Docusate Sodium 100 mg 08/11/17 18:45 08/12/17 09:50 Colace - PO 100 mg DAILY MARISELA Administration Fentanyl 50 mcg 08/11/17 13:59 08/11/17 14:10 Sublimaze Injection - IVPUSH 50 mcg [id number] PRN Administration PAIN-PACU ORDER X 4 DOSES ONLY Hydromorphone HCl 6 mg 08/12/17 11:13 08/12/17 12:14 Dilaudid Crap Game Box Person - NEW ACCOUNTS REPRESENTATIVE 08/18/17 14:00 0.4 mg NEW ACCOUNTS REPRESENTATIVE MARISELA Administration Protocol Hydromorphone HCl 1 mg 08/12/17 11:39 Dilaudid Injection - IVPUSH 08/12/17 11:40 ONCE ONE Lactated Ringer's 1,000 mls @ 100 mls/hr 08/11/17 14:00 03/26/18 15:20 Lactated Ringers Solution IV 0 mls ASDIR MARISELA Administration Loratadine 10 mg 08/11/17 18:45 08/12/17 09:58 Claritin - PO 10 mg DAILY MARISELA Administration Lorazepam 0.5 mg 08/11/17 18:43 08/11/17 18:56 Ativan Injection - IVPUSH 0.5 mg Q6H PRN Administration ANXIETY Ondansetron HCl 4 mg 08/11/17 13:58 08/12/17 09:50 Zofran Injection IVPUSH 4 mg Q6H PRN Administration NAUSEA AND/OR VOMITING Fluticasone/Salmeterol 1 puff 08/11/17 22:00 08/12/17 09:50 Advair 100mcg/50mcg - IH 1 puff BID MARISELA Administration Zolpidem Tartrate 10 mg 08/11/17 22:00 08/11/17 22:44 Ambien - PO 10 mg HS PRN Administration INSOMNIA ASSESSMENT/PLAN: 46 year old M with pmh of back pain s/p disectomy of L3-S1 in 2011, chronic sinusitis s/p 2 surgeries in 2002 and 2008, and asthma presented post op s/p L4- S1 laminectomy. #Post Op s/p L4-S1 laminectomy. -Dilaudid manager statistical, IV tylenol, and Fentanyl prn for pain control -Zofran PRN -NS @ 100 cc/hr -I/o -Incentive spirometer -PT when able -OOB as tolerated, weight bearing as tolerated -NPO until flatus passed #Constipation -colace 100 mg -IVF @ 100 cc/hr #Asthma -Albuterol nebs prn -advair bid #Anxiety -Ativan 0.5 mg prn #Insomnia -Ambien as needed #Fen/GI -IVF NS @ 100 cc/hr -wnl -NPO until flatus PPx: scds #Dispo: ICU level of care Visit type - Emergency Visit Emergency Visit: Yes ED Registration Date: 08/11/17 Care time: The patient presented to the Emergency Department on the above date and was hospitalized for further evaluation of their emergent condition. - New Patient This patient is new to me today: Yes Date on this admission: 08/12/17 - Critical Care Critical Care patient: Yes Total Critical Care Time (in minutes): 45 Critical Care Statement: The care of this patient involved high complexity decision making to prevent further life threatening deterioration of the patient 's condition and/or to evaluate & treat vital organ system(s) failure or risk of failure.
[2017-08-12] MEDS: LORazepam 2 MG/ML SDV VIAL IVPUSH PRN ×2 (13:59→22:04)
--- NOTE | 2017-08-12 14:45 | PN ---
Teaching Attending Note Name of Resident: Ventura Corona ATTENDING PHYSICIAN STATEMENT I saw and evaluated the patient. I reviewed the resident's note and discussed the case with the resident. I agree with the resident's findings and plan as documented. SUBJECTIVE: pain in lower back with numbness on lateral aspect of thighs . NO SOB but stuffy nose . OBJECTIVE: NAD , AAOx3 Lungs: CTAB , good air entry CV; RRR Ext: no edema Neuro: LE : 3/5 in hip flexion b/l ( limited by pain ) .5/5 knee flexion and ankle dorsiflexion/plantar flexion b/l. sensation to light touch decreased on L big toe and L lateral thigh . reflexes 2 + knee jerk b/l ASSESSMENT AND PLAN: 46 y/o man with h/o PTSD, lower back pain s/p discectomy in 2011, chronic sinusitis and anxiety who presented for L4-S1 decompression and fusion 1- S/P L4-S1 decompression and fusion : POD 1 - WBAT - pain control - NPO until flatus - follow drain - dc IVF in am 2-Chronic Moderate persistent Asthma : - Albuterol Nebs as needed - Advair BID 3- h/o PTSD and anxiety : ativan PRN. 4- DVT PX : SCds /Teds .
[2017-08-12] MEDS ORDERED: ACETAMINOPHEN 1000 MG/100 ML VIAL (NON FORMULARY) IVPB PRN (15:00)
--- NOTE | 2017-08-12 15:06 | PN ---
Progress Note (short form) - Note Progress Note: Post op day#1.S/p L4-L5-s1 Posterior decompression with instrumentation and fusion under GA uneventful.P88,BP 131/87 and Spo2 97% on RA.Patient stable and c /o pain score of 7-8/10 on dilaudid IT APPLICATIONS ANALYST.So will add Ofirmev and Neurontin and will f/u tomorrow.
[2017-08-12] MEDS: LACTATED RINGERS SOLUTION 1,000 ML IV SCH (19:44)
--- NOTE | 2017-08-12 22:12 | PN ---
Progress Note (short form) - Note Progress Note: Patient has not voided since 14:00 today and reports discomfort. Bladder scan done which revealed 400cc. Spoke to Dr. Phipps who recommended garcia be placed for an additional 12 hours
[2017-08-12] MEDS ORDERED: ALPRAZolam 0.25 MG TABLET PO ONE (22:13)
[2017-08-12] MEDS: GABAPENTIN 300 MG CAPSULE (FP) PO SCH (22:25)
[2017-08-13] MEDS: HYDROmorphone *PCA* 6MG/30ML DISP.SYRIN PCA SCH ×2 (03:34→08:42)
[2017-08-13] MEDS ORDERED: KETOROLAC TROMETHAMINE 30 MG/1 ML VIAL IVPUSH ONE (03:51)
[2017-08-13 06:31] LABS: BASO % 0.4 % (0-2.0); EOS % 1.7 % (0-4.5); HEMATOCRIT 30.7 % (35.4-49); HEMOGLOBIN 10.5 GM/dL (11.7-16.9); LYMPH % 17.5 % (8-40); MCHC 34.1 g/dl (32.0-35.9); MEAN CELL VOLUME 79.1 fl (80-96); MONO % 8.4 % (3.8-10.2); PLATELET COUNT 108 K/MM3 (134-434); RBC 3.88 M/mm3 (4.00-5.60); RDW 13.5 % (11.9-15.9); WHITE BLOOD COUNT 7.9 K/mm3 (4.0-10.0)
[2017-08-13 06:52] LABS: ANION GAP 6 (8-16); BLOOD UREA NITROGEN 12 mg/dL (7-18); CALCIUM 7.4 mg/dL (8.5-10.1); CHLORIDE 105 mmol/L (98-107); CO2 27 mmol/L (21-32); CREATININE 0.7 mg/dL (0.7-1.3); GLUCOSE,RANDOM 88 mg/dL (74-106); MAGNESIUM 1.7 mg/dL (1.8-2.4); PHOSPHOROUS 2.4 mg/dL (2.5-4.9); POTASSIUM 3.7 mmol/L (3.5-5.1); SODIUM 138 mmol/L (136-145)
[2017-08-13] MEDS ORDERED: HYDROmorphone *PCA* 6MG/30ML DISP.SYRIN PCA ONE (08:38)
--- NOTE | 2017-08-13 09:26 | PN ---
Physical Exam: SUBJECTIVE: Patient seen and examined Last night, pt unable to void without garcia, so garcia reinserted. This am, pt states that back pain is now 7/10, down from 9/10 yesterday. He denies n/v and abdominal pain, and endorses passing flatus. Pt states that he has been walking around since his PT session yesterday. OBJECTIVE: Vital Signs Period Temp Pulse Resp BP Sys/Garcia Pulse Ox Last 24 Hr 98.7 F-99.9 F 86-116 12-20 96-138/43-87 95 GENERAL: The patient is awake, alert, and fully oriented, in no acute distress. HEENT: NC, AT LUNGS: Breath sounds equal, clear to auscultation bilaterally, no wheezes, no crackles, no accessory muscle use. HEART: Regular rate and rhythm, S1, S2 without murmur, rub or gallop. ABDOMEN: Soft, nontender, nondistended, normoactive bowel sounds, no guarding, no rebound, no hepatosplenomegaly, no masses. Back: dry bandage overlying incision site. drain with blood tinged fluid. EXTREMITIES: 2+ pulses, warm, well-perfused, no edema. b/l mild tenderness to palpation NEUROLOGICAL: Cranial nerves II through XII grossly intact, b/l LE sensory function intact, unable to lift legs off of bed 2/2 pain. Able to move toes. Laboratory Results - last 24 hr 08/13/17 08/13/17 06:20 06:20 WBC 7.9 RBC 3.88 L Hgb 10.5 L D Hct 30.7 L MCV 79.1 L MCH 27.0 MCHC 34.1 RDW 13.5 Plt Count 108 L MPV 10.0 Neutrophils % 72.0 Lymphocytes % 17.5 Monocytes % 8.4 Eosinophils % 1.7 Basophils % 0.4 Sodium 138 Potassium 3.7 Chloride 105 Carbon Dioxide 27 Anion Gap 6 L BUN 12 D Creatinine 0.7 D Random Glucose 88 Calcium 7.4 L Phosphorus 2.4 L D Magnesium 1.7 L Active Medications Generic Name Dose Route Start Last Admin Trade Name Freq PRN Reason Stop Dose Admin Acetaminophen 650 mg 08/12/17 13:36 Tylenol - PO Q6H PRN FEVER Acetaminophen 1,000 mg 08/12/17 15:00 Ofirmev Injection - IVPB Q6H PRN PAIN LEVEL 7 - 10 Albuterol Sulfate 1 amp 08/11/17 19:00 Ventolin 0.083% Nebulizer Soln - NEB Q4H PRN SHORT OF BREATH/WHEEZING Albuterol Sulfate 2 puff 08/12/17 01:48 Ventolin Hfa Inhaler - IH Q6H PRN SHORT OF BREATH/WHEEZING Docusate Sodium 100 mg 08/11/17 18:45 08/12/17 09:50 Colace - PO 100 mg DAILY MARISELA Administration Fentanyl 50 mcg 08/11/17 13:59 08/11/17 14:10 Sublimaze Injection - IVPUSH 50 mcg [id number] PRN Administration PAIN-PACU ORDER X 4 DOSES ONLY Gabapentin 300 mg 08/12/17 22:00 08/12/17 22:25 Neurontin - PO 300 mg BID MARISELA Administration Hydromorphone HCl 6 mg 08/12/17 11:13 08/13/17 08:42 Dilaudid Product Applications Scientist - FUEL OIL TRUCK DRIVER 08/18/17 14:00 6 mg FUEL OIL TRUCK DRIVER MARISELA Administration Protocol Lactated Ringer's 1,000 mls @ 100 mls/hr 08/11/17 14:00 08/12/17 19:44 Lactated Ringers Solution IV Not Given ASDIR MARISELA Loratadine 10 mg 08/11/17 18:45 08/12/17 09:58 Claritin - PO 10 mg DAILY MARISELA Administration Lorazepam 0.5 mg 08/11/17 18:43 08/12/17 22:04 Ativan Injection - IVPUSH 0.5 mg Q6H PRN Administration ANXIETY Magnesium Sulfate/Dextrose 1 gm 08/13/17 09:30 Magnesium 1gm/D5w - IVPB 08/13/17 09:31 ONCE ONE Ondansetron HCl 4 mg 08/11/17 13:58 08/12/17 09:50 Zofran Injection IVPUSH 4 mg Q6H PRN Administration NAUSEA AND/OR VOMITING Fluticasone/Salmeterol 1 puff 08/11/17 22:00 08/12/17 22:25 Advair 100mcg/50mcg - IH 1 puff BID MARISELA Administration Zolpidem Tartrate 10 mg 08/11/17 22:00 08/11/17 22:44 Ambien - PO 10 mg HS PRN Administration INSOMNIA ASSESSMENT/PLAN: 46M w/ hx of chronic back pain s/p disectomy of L3-S1 in 2011, chronic sinusitis s/p 2 surgeries in 2002 and 2008, and asthma, who is now POD #2 s/p L4 -S1 laminectomy for spinal stenosis. Neuro #Post Op day #2 s/p L4-S1 laminectomy -pain control: changed to oxycodone by anesthesia -Zofran PRN -LR @ 100 cc/hr. will d/c if tolerating clears -Incentive spirometer -PT: able to ambulate -OOB as tolerated -started on clears -will attempt trial of void without garcia this afternoon -monitor mai drain output GI #Constipation -colace 100 mg -started senna and miralax Resp #Asthma -Albuterol nebs prn Psych #Anxiety -Ativan 0.5 mg prn #Insomnia -Ambien PRN #FEN/ppx -LR @ 100 -electrolytes wnl -NPO until flatus -SCDs -no GI ppx indicated Dispo: Stable for transfer to med/surg from ICU standpoint. Pending recs by Dr. Phipps. Case discussed with attending, Dr. Flores. -Albert Vazquez MD PGY1 ICU Team Visit type - Emergency Visit Emergency Visit: Yes ED Registration Date: 08/11/17 Care time: The patient presented to the Emergency Department on the above date and was hospitalized for further evaluation of their emergent condition. - New Patient This patient is new to me today: No - Critical Care Critical Care patient: Yes Total Critical Care Time (in minutes): 38 Critical Care Statement: The care of this patient involved high complexity decision making to prevent further life threatening deterioration of the patient 's condition and/or to evaluate & treat vital organ system(s) failure or risk of failure.
[2017-08-13] MEDS ORDERED: MAGNESIUM 1GM/D5W 100ML - 100 ML IVPB IVPB ONE (09:30)
[2017-08-13] MEDS: LORATADINE 10 MG TABLET PO SCH (09:37)
[2017-08-13] MEDS: DOCUSATE SODIUM 100 MG CAPSULE (FP) PO SCH (09:38)
[2017-08-13] MEDS: FLUTICASONE/SALMETEROL 100 MCG/50 MCG DISKUS IH SCH ×2 (09:38→21:07)
[2017-08-13] MEDS: GABAPENTIN 300 MG CAPSULE (FP) PO SCH ×2 (09:38→21:07)
[2017-08-13] MEDS ORDERED: oxyCODONE HCL 5 MG TABLET PO PRN (10:34)
--- NOTE | 2017-08-13 10:42 | PN ---
Progress Note (short form) - Note Progress Note: Anesthesiology Post-op/Pain Service POD #1 s/p Lumbar decompression and fusion under GA with post-op HOME DESIGNER. Pt. is resting comfortably in bed. He is tolerating PO clears and is able to swallow pills without problems. Passing gas. He does admit to pain of 8/10 which is relieved with HOME DESIGNER use. VSS, no other issues. 46 y.o. s/p lumbar decompression and fusion on HOME DESIGNER with stable post-op course. Discussed with pt. that since he is tolerating PO intake well, will d/c HOME DESIGNER and change to PO pain meds. He is amenable to this. I have also d/w RN. Please contact Anesthesiology if further assistance is required.
[2017-08-13] MEDS ORDERED: SENNOSIDES 8.6MG TABLET (FP) PO PRN (11:17)
[2017-08-13] MEDS: oxyCODONE HCL 10 MG SUSTAINED ACTING TABLET PO SCH ×2 (11:19→21:07)
[2017-08-13] MEDS: LACTATED RINGERS SOLUTION 1,000 ML IV SCH ×2 (11:24→15:46)
--- NOTE | 2017-08-13 12:02 | PN ---
Teaching Attending Note Name of Resident: Albert Vazquez ATTENDING PHYSICIAN STATEMENT I saw and evaluated the patient. I reviewed the resident's note and discussed the case with the resident. I agree with the resident's findings and plan as documented. SUBJECTIVE: Pt seen and examined in the ICU. Pain controlled. Passed flatus, started on clear liquids. Failed trial of void overnight, garcia replaced. OBJECTIVE: Last Vital Signs Temp Pulse Resp BP Pulse Ox 99.1 F 103 H 22 111/70 97 08/13/17 10:00 08/13/17 10:00 08/13/17 10:00 08/13/17 10:00 08/13/17 09:00 Intake & Output 08/10/17 08/11/17 08/12/17 08/13/17 23:59 23:59 23:59 23:59 Intake Total 2950 2550 1200 Output Total 1840 1930 1515 Balance 1110 620 -315 Gen: NAD at rest Heart: RRR Lung: decreased breath sounds at the bases Abd: soft, nontender Ext: no edema CBC, BMP 08/13/17 06:20 08/13/17 06:20 Active Medications Acetaminophen (Tylenol -) 650 mg PO Q6H PRN PRN Reason: FEVER Acetaminophen (Ofirmev Injection -) 1,000 mg IVPB Q6H PRN PRN Reason: PAIN LEVEL 7 - 10 Albuterol Sulfate (Ventolin 0.083% Nebulizer Soln -) 1 amp NEB Q4H PRN PRN Reason: SHORT OF BREATH/WHEEZING Albuterol Sulfate (Ventolin Hfa Inhaler -) 2 puff IH Q6H PRN PRN Reason: SHORT OF BREATH/WHEEZING Docusate Sodium (Colace -) 100 mg PO DAILY [facility] Last Admin: 08/13/17 09:38 Dose: 100 mg Gabapentin (Neurontin -) 300 mg PO BID [facility] Last Admin: 08/13/17 09:38 Dose: 300 mg Lactated Ringer's (Lactated Ringers Solution) 1,000 mls @ 100 mls/hr IV ASDIR [facility] Last Admin: 08/13/17 11:24 Dose: 100 mls/hr Loratadine (Claritin -) 10 mg PO DAILY [facility] Last Admin: 08/13/17 09:37 Dose: 10 mg Lorazepam (Ativan Injection -) 0.5 mg IVPUSH Q6H PRN PRN Reason: ANXIETY Last Admin: 08/12/17 22:04 Dose: 0.5 mg Ondansetron HCl (Zofran Injection) 4 mg IVPUSH Q6H PRN PRN Reason: NAUSEA AND/OR VOMITING Last Admin: 08/12/17 09:50 Dose: 4 mg Oxycodone HCl (Roxicodone -) 5 mg PO Q3H PRN PRN Reason: PAIN LEVEL 1-5 Oxycodone HCl (Roxicodone -) 10 mg PO Q3H PRN PRN Reason: PAIN LEVEL 6-10 Oxycodone HCl (Oxycontin -) 10 mg PO BID [facility] Stop: 08/16/17 10:34 Last Admin: 08/13/17 11:19 Dose: 10 mg Polyethylene Glycol (Miralax (For Daily Use) -) 17 gm PO DAILY [facility] Fluticasone/Salmeterol (Advair 100mcg/50mcg -) 1 puff IH BID [facility] Last Admin: 08/13/17 09:38 Dose: 1 puff Senna (Senna -) 2 tab PO HS PRN PRN Reason: CONSTIPATION Zolpidem Tartrate (Ambien -) 10 mg PO HS PRN PRN Reason: INSOMNIA Last Admin: 08/11/17 22:44 Dose: 10 mg ASSESSMENT AND PLAN: Lumbar Spinal Stenosis s/p L4-S1 Laminectomies/Fusions Asthma Anxiety PTSD/Anxiety - pain control - incentive spirometry - bowel regimen - rehab/PT - monitor drain output - monitor H/H - activity/garcia/PO per surgery - mechanical DVT prophylaxis
[2017-08-13] MEDS: POLYETHYLENE GLYCOL 3350 119 GM BTL PO SCH (12:31)
[2017-08-13] MEDS: oxyCODONE HCL 5 MG TABLET PO PRN ×3 (13:22→19:50)
--- NOTE | 2017-08-13 13:33 | PN ---
<Ventura Corona - Last Filed: 08/13/17 14:21> Physical Exam: SUBJECTIVE: Patient seen and examined No acute events overnight. Pain is better controlled. He still has numbness in posterolateral aspect of left leg. OBJECTIVE: Vital Signs Period Temp Pulse Resp BP Sys/Garcia Pulse Ox Last 24 Hr 98.7 F-99.1 F 102-116 12-22 96-138/43-87 95-97 GENERAL: Awake, alert, and fully oriented, in no acute distress. HEAD: Normal with no signs of trauma. EYES: Pupils equal, round and reactive to light, extraocular movements intact, sclera anicteric, conjunctiva clear. No lid lag. EARS, NOSE, THROAT: Nares patent, oropharynx clear without exudates. +Postnasal rhinorrhea. Moist mucous membranes. NECK: Supple without lymphadenopathy, JVD, or masses. LUNGS: Breath sounds equal, clear to auscultation bilaterally. No wheezes, and no crackles. No accessory muscle use. HEART: Tachycardic, Normal rhythm, normal S1 and S2 without murmur, rub or gallop. ABDOMEN: Soft, nontender, not distended, normoactive bowel sounds, no guarding, no rebound, no masses. No hepatomegaly or splenomegaly. MUSCULOSKELETAL: Normal range of motion at all joints. No bony deformities or tenderness. No CVA tenderness. +HARMEET drain in place--serosanginous drainage UPPER EXTREMITIES: 2+ pulses, warm, well-perfused. No cyanosis. No clubbing. No peripheral edema. LOWER EXTREMITIES: 2+ pulses, warm, well-perfused. No calf tenderness. No peripheral edema. NEUROLOGICAL: Cranial nerves II-XII intact. Strength 5/5 and sensation intact in UE proximally and distally. Lower extremities- 4/5 RLE strength, 3-4/5 LLE strength, 1+ reflexes b/l, sensation decreased in posterolateral aspect of left lower extremity PSYCHIATRIC: Cooperative. Good eye contact. Appropriate mood and affect. SKIN: Warm, dry, normal turgor, no rashes or lesions noted, normal capillary refill. Laboratory Results - last 24 hr 08/13/17 08/13/17 06:20 06:20 WBC 7.9 RBC 3.88 L Hgb 10.5 L D Hct 30.7 L MCV 79.1 L MCH 27.0 MCHC 34.1 RDW 13.5 Plt Count 108 L MPV 10.0 Neutrophils % 72.0 Lymphocytes % 17.5 Monocytes % 8.4 Eosinophils % 1.7 Basophils % 0.4 Sodium 138 Potassium 3.7 Chloride 105 Carbon Dioxide 27 Anion Gap 6 L BUN 12 D Creatinine 0.7 D Random Glucose 88 Calcium 7.4 L Phosphorus 2.4 L D Magnesium 1.7 L Active Medications Generic Name Dose Route Start Last Admin Trade Name Freq PRN Reason Stop Dose Admin Acetaminophen 650 mg 08/12/17 13:36 Tylenol - PO Q6H PRN FEVER Acetaminophen 1,000 mg 08/12/17 15:00 Ofirmev Injection - IVPB Q6H PRN PAIN LEVEL 7 - 10 Albuterol Sulfate 1 amp 08/11/17 19:00 Ventolin 0.083% Nebulizer Soln - NEB Q4H PRN SHORT OF BREATH/WHEEZING Albuterol Sulfate 2 puff 08/12/17 01:48 Ventolin Hfa Inhaler - IH Q6H PRN SHORT OF BREATH/WHEEZING Docusate Sodium 100 mg 08/11/17 18:45 08/13/17 09:38 Colace - PO 100 mg DAILY MARISELA Administration Gabapentin 300 mg 08/12/17 22:00 08/13/17 09:38 Neurontin - PO 300 mg BID MARISELA Administration Lactated Ringer's 1,000 mls @ 100 mls/hr 08/11/17 14:00 08/13/17 11:24 Lactated Ringers Solution IV 100 mls/hr ASDIR MARISELA Administration Loratadine 10 mg 08/11/17 18:45 08/13/17 09:37 Claritin - PO 10 mg DAILY MARISELA Administration Lorazepam 0.5 mg 08/11/17 18:43 08/12/17 22:04 Ativan Injection - IVPUSH 0.5 mg Q6H PRN Administration ANXIETY Ondansetron HCl 4 mg 08/11/17 13:58 08/12/17 09:50 Zofran Injection IVPUSH 4 mg Q6H PRN Administration NAUSEA AND/OR VOMITING Oxycodone HCl 5 mg 08/13/17 10:34 Roxicodone - PO Q3H PRN PAIN LEVEL 1-5 Oxycodone HCl 10 mg 08/13/17 10:34 08/13/17 13:22 Roxicodone - PO 10 mg Q3H PRN Administration PAIN LEVEL 6-10 Oxycodone HCl 10 mg 08/13/17 10:45 08/13/17 11:19 Oxycontin - PO 08/16/17 10:34 10 mg BID MARISELA Administration Polyethylene Glycol 17 gm 08/13/17 11:30 08/13/17 12:31 Miralax (For Daily Use) - PO 17 grams DAILY MARISELA Administration Fluticasone/Salmeterol 1 puff 08/11/17 22:00 08/13/17 09:38 Advair 100mcg/50mcg - IH 1 puff BID MARISELA Administration Senna 2 tab 08/13/17 11:17 Senna - PO HS PRN CONSTIPATION Zolpidem Tartrate 10 mg 08/11/17 22:00 08/11/17 22:44 Ambien - PO 10 mg HS PRN Administration INSOMNIA ASSESSMENT/PLAN: 46 year old M with pmh of back pain s/p disectomy of L3-S1 in 2011, chronic sinusitis s/p 2 surgeries in 2002 and 2008, and asthma presented post op s/p L4- S1 laminectomy. #Post Op s/p L4-S1 laminectomy. -Dilaudid logistician, IV tylenol, and Fentanyl prn for pain control -Zofran PRN -NS @ 100 cc/hr -I/o -Incentive spirometer -PT when able -OOB as tolerated, weight bearing as tolerated -NPO until flatus passed #Constipation -colace 100 mg -IVF @ 100 cc/hr #Asthma -Albuterol nebs prn -advair bid #Anxiety -Ativan 0.5 mg prn #Insomnia -Ambien as needed #Fen/GI -IVF NS @ 100 cc/hr -wnl -Clear liquid PPx: scds #Dispo: transferred to M/S Visit type - Emergency Visit Emergency Visit: Yes ED Registration Date: 08/11/17 Care time: The patient presented to the Emergency Department on the above date and was hospitalized for further evaluation of their emergent condition. - New Patient This patient is new to me today: No - Critical Care Critical Care patient: Yes Total Critical Care Time (in minutes): 44 Critical Care Statement: The care of this patient involved high complexity decision making to prevent further life threatening deterioration of the patient 's condition and/or to evaluate & treat vital organ system(s) failure or risk of failure. <Milad Long - Last Filed: 08/13/17 19:23> Physical Exam: Patient seen and examined. Agree with the resident's note. Vital Signs Temperature 98.9 F 08/13/17 17:34 Pulse Rate 102 H 08/13/17 17:34 Respiratory Rate 19 08/13/17 17:34 Blood Pressure 119/66 08/13/17 17:34 O2 Sat by Pulse Oximetry (%) 97 08/13/17 09:00 CBCD WBC 7.9 K/mm3 (4.0-10.0) 08/13/17 06:20 RBC 3.88 M/mm3 (4.00-5.60) L 08/13/17 06:20 Hgb 10.5 GM/dL (11.7-16.9) L D 08/13/17 06:20 Hct 30.7 % (35.4-49) L 08/13/17 06:20 MCV 79.1 fl (80-96) L 08/13/17 06:20 MCHC 34.1 g/dl (32.0-35.9) 08/13/17 06:20 RDW 13.5 % (11.9-15.9) 08/13/17 06:20 Plt Count 108 K/MM3 (134-434) L 08/13/17 06:20 MPV 10.0 fl (7.5-11.1) 08/13/17 06:20 CMP Sodium 138 mmol/L (136-145) 08/13/17 06:20 Potassium 3.7 mmol/L (3.5-5.1) 08/13/17 06:20 Chloride 105 mmol/L (98-107) 08/13/17 06:20 Carbon Dioxide 27 mmol/L (21-32) 08/13/17 06:20 Anion Gap 6 (8-16) L 08/13/17 06:20 BUN 12 mg/dL (7-18) D 08/13/17 06:20 Creatinine 0.7 mg/dL (0.7-1.3) D 08/13/17 06:20 Creat Clearance w eGFR > 60 (>60) 08/11/17 18:21 Random Glucose 88 mg/dL (74-106) 08/13/17 06:20 Calcium 7.4 mg/dL (8.5-10.1) L 08/13/17 06:20 Total Bilirubin 1.0 mg/dL (0.2-1.0) 08/11/17 18:21 AST 33 U/L (15-37) 08/11/17 18:21 ALT 36 U/L (12-78) 08/11/17 18:21 Alkaline Phosphatase 72 U/L (45-117) 08/11/17 18:21 Total Protein 5.3 g/dl (6.4-8.2) L 08/11/17 18:21 Albumin 3.1 g/dl (3.4-5.0) L 08/11/17 18:21 Current Medications Generic Name Dose Route Start Last Admin Trade Name Freq PRN Reason Stop Dose Admin Acetaminophen 650 mg 08/12/17 13:36 08/13/17 15:44 Tylenol - PO 650 mg Q6H PRN Administration FEVER Acetaminophen 1,000 mg 08/12/17 15:00 08/13/17 18:06 Ofirmev Injection - IVPB 1,000 mg Q6H PRN Administration PAIN LEVEL 7 - 10 Albuterol Sulfate 1 amp 08/11/17 19:00 Ventolin 0.083% Nebulizer Soln - NEB Q4H PRN SHORT OF BREATH/WHEEZING Albuterol Sulfate 2 puff 08/12/17 01:48 Ventolin Hfa Inhaler - IH Q6H PRN SHORT OF BREATH/WHEEZING Docusate Sodium 100 mg 08/11/17 18:45 08/13/17 09:38 Colace - PO 100 mg DAILY MARISELA Administration Gabapentin 300 mg 08/12/17 22:00 08/13/17 09:38 Neurontin - PO 300 mg BID MARISELA Administration Lactated Ringer's 1,000 mls @ 100 mls/hr 08/11/17 14:00 08/13/17 15:46 Lactated Ringers Solution IV Not Given ASDIR MARISELA Loratadine 10 mg 08/11/17 18:45 08/13/17 09:37 Claritin - PO 10 mg DAILY MARISELA Administration Lorazepam 0.5 mg 08/11/17 18:43 08/12/17 22:04 Ativan Injection - IVPUSH 0.5 mg Q6H PRN Administration ANXIETY Ondansetron HCl 4 mg 08/11/17 13:58 08/12/17 09:50 Zofran Injection IVPUSH 4 mg Q6H PRN Administration NAUSEA AND/OR VOMITING Oxycodone HCl 5 mg 08/13/17 10:34 Roxicodone - PO Q3H PRN PAIN LEVEL 1-5 Oxycodone HCl 10 mg 08/13/17 10:34 08/13/17 16:40 Roxicodone - PO 10 mg Q3H PRN Administration PAIN LEVEL 6-10 Oxycodone HCl 10 mg 08/13/17 10:45 08/13/17 11:19 Oxycontin - PO 08/16/17 10:34 10 mg BID MARISELA Administration Polyethylene Glycol 17 gm 08/13/17 11:30 08/13/17 12:31 Miralax (For Daily Use) - PO 17 grams DAILY MARISELA Administration Fluticasone/Salmeterol 1 puff 08/11/17 22:00 08/13/17 09:38 Advair 100mcg/50mcg - IH 1 puff BID MARISELA Administration Senna 2 tab 08/13/17 11:17 Senna - PO HS PRN CONSTIPATION Zolpidem Tartrate 10 mg 08/11/17 22:00 08/11/17 22:44 Ambien - PO 10 mg HS PRN Administration INSOMNIA Home Medications Medication Instructions Recorded Acetaminophen/Caffeine/Butalb 1 tab PO Q4H 08/07/17 [Fioricet -] Albuterol Sulfate Inhaler - 1 - 2 inh PO QID 08/07/17 [Ventolin Hfa Inhaler -] Alprazolam [Xanax] 2 mg PO PRN 08/07/17 Amoxicillin - [Amoxicillin 875mg 875 mg PO BID 08/07/17 Tablet -] Loratadine [Claritin -] 10 mg PO DAILY 08/07/17 Oxycodone HCl [Oxycodone HCl ER] 30 mg PO BID 08/07/17 Zolpidem Tartrate 10 mg PO HS 08/07/17
--- NOTE | 2017-08-13 13:52 | PATH ---
Surgical Pathology Report Patient Name: ISAIAH MALLOY Med. Rec. #: [id number] /Age/Gender: 1970 (Age: 46) / M Account: [id number] Location: [address] [place] [address]/[facility] Taken: 08/11/2017 Received: 08/12/2017 Reported: 08/13/2017 Physicians: Adal Phipps M.D. Specimen(s) Received L4-S1 INTERVERTEBRAL DISC Clinical History L4-S1 spinal stenosis Final Diagnosis L4-S1, INTERVERTEBRAL DISC, POSTERIOR LUMBAR INTERBODY FUSION: INTERVERTEBRAL DISC TISSUE. Electronically Signed Lizzie Potts M.D. Gross Description Received in formalin labeled "L4-S1 intervertebral disc" is a 5.0 x 3.3 x 0.5 cm aggregate of fernando fragments of fibrocartilaginous tissue. A career representative portion is submitted in one cassette. /08/12/2017 saudi/08/12/2017
[2017-08-13] MEDS ORDERED: NAPH,MB-DB/K PH,MBDB POWDER PACKET PO ONE (14:45)
[2017-08-13] MEDS ORDERED: ACETAMINOPHEN 1000 MG/100 ML VIAL (NON FORMULARY) IVPB ONE (19:54)
[2017-08-13] MEDS: KETOROLAC TROMETHAMINE 30 MG/1 ML VIAL IVPUSH SCH (20:44)
[2017-08-13] MEDS ORDERED: PT OWN MED DRAWER 7, Y5N ONE (20:50)
[2017-08-13] MEDS: ZOLPIDEM TARTRATE 5 MG TABLET PO PRN (21:07)
[2017-08-14] MEDS: LACTATED RINGERS SOLUTION 1,000 ML IV SCH (00:13)
[2017-08-14] MEDS: oxyCODONE HCL 5 MG TABLET PO PRN ×3 (01:55→14:56)
[2017-08-14] MEDS: KETOROLAC TROMETHAMINE 30 MG/1 ML VIAL IVPUSH SCH ×3 (03:21→20:09)
[2017-08-14] MEDS: MORPHINE SULFATE 10 MG/1 ML *VIAL IVPUSH PRN ×3 (03:50→18:24)
[2017-08-14 08:33] LABS: ANION GAP 5 (8-16); BLOOD UREA NITROGEN 10 mg/dL (7-18); CALCIUM 7.5 mg/dL (8.5-10.1); CHLORIDE 102 mmol/L (98-107); CO2 31 mmol/L (21-32); CREATININE 0.9 mg/dL (0.7-1.3); GLUCOSE,RANDOM 86 mg/dL (74-106); PHOSPHOROUS 3.3 mg/dL (2.5-4.9); POTASSIUM 3.6 mmol/L (3.5-5.1); SODIUM 138 mmol/L (136-145)
[2017-08-14] MEDS ORDERED: PT OWN MED DRAWER 7, Y5N ONE ×2 (09:20→20:56)
[2017-08-14] MEDS: GABAPENTIN 300 MG CAPSULE (FP) PO SCH ×2 (09:35→21:02)
[2017-08-14] MEDS: LORATADINE 10 MG TABLET PO SCH (09:35)
[2017-08-14] MEDS: FLUTICASONE/SALMETEROL 100 MCG/50 MCG DISKUS IH SCH ×2 (09:35→21:02)
[2017-08-14] MEDS: DOCUSATE SODIUM 100 MG CAPSULE (FP) PO SCH (09:35)
[2017-08-14] MEDS: oxyCODONE HCL 10 MG SUSTAINED ACTING TABLET PO SCH ×2 (09:36→21:02)
[2017-08-14] MEDS: POLYETHYLENE GLYCOL 3350 119 GM BTL PO SCH (09:41)
--- NOTE | 2017-08-14 11:05 | PN ---
<Ventura Corona - Last Filed: 08/14/17 16:18> Physical Exam: SUBJECTIVE: Patient seen and examined Patient in severe pain overnight when laying in bed. Pain controlled better this morning. No other complaints. OBJECTIVE: Vital Signs Period Temp Pulse Resp BP Sys/Garcia Pulse Ox Last 24 Hr 98.8 F-98.9 F 100-105 17-20 109-119/61-80 97 GENERAL: Awake, alert, and fully oriented, in no acute distress. HEAD: Normal with no signs of trauma. EYES: Pupils equal, round and reactive to light, extraocular movements intact, sclera anicteric, conjunctiva clear. No lid lag. EARS, NOSE, THROAT: Nares patent, oropharynx clear without exudates. MMM NECK: Supple without lymphadenopathy, JVD, or masses. LUNGS: Breath sounds equal, clear to auscultation bilaterally. No wheezes, and no crackles. No accessory muscle use. HEART: Tachycardic, Normal rhythm, normal S1 and S2 without murmur, rub or gallop. ABDOMEN: Soft, nontender, not distended, normoactive bowel sounds, no guarding, no rebound, no masses. No hepatomegaly or splenomegaly. MUSCULOSKELETAL: Normal range of motion at all joints. No bony deformities or tenderness. No CVA tenderness. +HARMEET drain in place UPPER EXTREMITIES: 2+ pulses, warm, well-perfused. No cyanosis. No clubbing. No peripheral edema. LOWER EXTREMITIES: 2+ pulses, warm, well-perfused. No calf tenderness. No peripheral edema. NEUROLOGICAL: As per Dr. Phipps PSYCHIATRIC: Cooperative. Good eye contact. Appropriate mood and affect. SKIN: Warm, dry, normal turgor, no rashes or lesions noted, normal capillary refill. Laboratory Results - last 24 hr 08/14/17 07:45 Sodium 138 Potassium 3.6 Chloride 102 Carbon Dioxide 31 Anion Gap 5 L BUN 10 Creatinine 0.9 D Random Glucose 86 Calcium 7.5 L Phosphorus 3.3 D Magnesium 2.0 Active Medications Generic Name Dose Route Start Last Admin Trade Name Freq PRN Reason Stop Dose Admin Acetaminophen 650 mg 08/12/17 13:36 08/13/17 15:44 Tylenol - PO 650 mg Q6H PRN Administration FEVER Acetaminophen 1,000 mg 08/12/17 15:00 08/13/17 18:06 Ofirmev Injection - IVPB 1,000 mg Q6H PRN Administration PAIN LEVEL 7 - 10 Albuterol Sulfate 1 amp 08/11/17 19:00 Ventolin 0.083% Nebulizer Soln - NEB Q4H PRN SHORT OF BREATH/WHEEZING Albuterol Sulfate 2 puff 08/12/17 01:48 Ventolin Hfa Inhaler - IH Q6H PRN SHORT OF BREATH/WHEEZING Docusate Sodium 100 mg 08/11/17 18:45 08/14/17 09:35 Colace - PO 100 mg DAILY MARISELA Administration Gabapentin 300 mg 08/12/17 22:00 08/14/17 09:35 Neurontin - PO 300 mg BID MARISELA Administration Lactated Ringer's 1,000 mls @ 100 mls/hr 08/11/17 14:00 08/14/17 00:13 Lactated Ringers Solution IV 100 mls/hr ASDIR MARISELA Administration Ketorolac Tromethamine 30 mg 08/13/17 20:00 08/14/17 03:21 Toradol Injection - IVPUSH 08/18/17 19:59 30 mg Q8H MARISELA Administration Loratadine 10 mg 08/11/17 18:45 08/14/17 09:35 Claritin - PO 10 mg DAILY MARISELA Administration Lorazepam 0.5 mg 08/11/17 18:43 08/12/17 22:04 Ativan Injection - IVPUSH 0.5 mg Q6H PRN Administration ANXIETY Morphine Sulfate 5 mg 08/14/17 03:43 08/14/17 09:35 Morphine Injection - IVPUSH 5 mg Q6H PRN Administration PAIN LEVEL 6-10 Ondansetron HCl 4 mg 08/11/17 13:58 08/12/17 09:50 Zofran Injection IVPUSH 4 mg Q6H PRN Administration NAUSEA AND/OR VOMITING Oxycodone HCl 5 mg 08/13/17 10:34 Roxicodone - PO Q3H PRN PAIN LEVEL 1-5 Oxycodone HCl 10 mg 08/13/17 10:34 08/14/17 07:30 Roxicodone - PO 10 mg Q3H PRN Administration PAIN LEVEL 6-10 Oxycodone HCl 10 mg 08/13/17 10:45 08/14/17 09:36 Oxycontin - PO 08/16/17 10:34 10 mg BID MARISELA Administration Polyethylene Glycol 17 gm 08/13/17 11:30 08/14/17 09:41 Miralax (For Daily Use) - PO 17 grams DAILY MARISELA Administration Fluticasone/Salmeterol 1 puff 08/11/17 22:00 08/14/17 09:35 Advair 100mcg/50mcg - IH 1 puff BID MARISELA Administration Senna 2 tab 08/13/17 11:17 Senna - PO HS PRN CONSTIPATION Zolpidem Tartrate 10 mg 08/11/17 22:00 08/13/17 21:07 Ambien - PO 10 mg HS PRN Administration INSOMNIA ASSESSMENT/PLAN: 46 year old M with pmh of back pain s/p disectomy of L3-S1 in 2011, chronic sinusitis s/p 2 surgeries in 2002 and 2008, and asthma presented post op day 3 s /p L4-S1 laminectomy. #Post Op day 3 s/p L4-S1 laminectomy. -Neurontin 300 bid, as well as Morphine, Oxycodone, Toradol prn for pain control -Zofran PRN -NS @ 100 cc/hr -I/o -Incentive spirometer -PT when able -OOB as tolerated, weight bearing as tolerated #Constipation -colace, senna, and miralax -IVF @ 100 cc/hr #Asthma -Albuterol nebs prn -advair bid #Anxiety -Ativan 0.5 mg prn #Insomnia -Ambien as needed #Fen/GI -IVF LR @ 100 cc/hr -wnl -Clear liquid PPx: scds Visit type - Emergency Visit Emergency Visit: Yes ED Registration Date: 08/11/17 Care time: The patient presented to the Emergency Department on the above date and was hospitalized for further evaluation of their emergent condition. - New Patient This patient is new to me today: No - Critical Care Critical Care patient: No <Milad Long - Last Filed: 08/14/17 18:46> Physical Exam: Patient is feeling better today. more comfortable today. Agrees with the resident's note. PE per 's. Vital Signs Temperature 98.6 F 08/14/17 14:42 Pulse Rate 101 H 08/14/17 13:00 Respiratory Rate 18 08/14/17 13:00 Blood Pressure 113/64 08/14/17 13:00 O2 Sat by Pulse Oximetry (%) 97 08/13/17 20:41 CBCD WBC 7.9 K/mm3 (4.0-10.0) 08/13/17 06:20 RBC 3.88 M/mm3 (4.00-5.60) L 08/13/17 06:20 Hgb 10.5 GM/dL (11.7-16.9) L D 08/13/17 06:20 Hct 30.7 % (35.4-49) L 08/13/17 06:20 MCV 79.1 fl (80-96) L 08/13/17 06:20 MCHC 34.1 g/dl (32.0-35.9) 08/13/17 06:20 RDW 13.5 % (11.9-15.9) 08/13/17 06:20 Plt Count 108 K/MM3 (134-434) L 08/13/17 06:20 MPV 10.0 fl (7.5-11.1) 08/13/17 06:20 CMP Sodium 138 mmol/L (136-145) 08/14/17 07:45 Potassium 3.6 mmol/L (3.5-5.1) 08/14/17 07:45 Chloride 102 mmol/L (98-107) 08/14/17 07:45 Carbon Dioxide 31 mmol/L (21-32) 08/14/17 07:45 Anion Gap 5 (8-16) L 08/14/17 07:45 BUN 10 mg/dL (7-18) 08/14/17 07:45 Creatinine 0.9 mg/dL (0.7-1.3) D 08/14/17 07:45 Creat Clearance w eGFR > 60 (>60) 08/11/17 18:21 Random Glucose 86 mg/dL (74-106) 08/14/17 07:45 Calcium 7.5 mg/dL (8.5-10.1) L 08/14/17 07:45 Total Bilirubin 1.0 mg/dL (0.2-1.0) 08/11/17 18:21 AST 33 U/L (15-37) 08/11/17 18:21 ALT 36 U/L (12-78) 08/11/17 18:21 Alkaline Phosphatase 72 U/L (45-117) 08/11/17 18:21 Total Protein 5.3 g/dl (6.4-8.2) L 08/11/17 18:21 Albumin 3.1 g/dl (3.4-5.0) L 08/11/17 18:21 Current Medications Generic Name Dose Route Start Last Admin Trade Name Freq PRN Reason Stop Dose Admin Acetaminophen 650 mg 08/12/17 13:36 08/13/17 15:44 Tylenol - PO 650 mg Q6H PRN Administration FEVER Acetaminophen 1,000 mg 08/12/17 15:00 08/13/17 18:06 Ofirmev Injection - IVPB 1,000 mg Q6H PRN Administration PAIN LEVEL 7 - 10 Albuterol Sulfate 1 amp 08/11/17 19:00 Ventolin 0.083% Nebulizer Soln - NEB Q4H PRN SHORT OF BREATH/WHEEZING Albuterol Sulfate 2 puff 08/12/17 01:48 Ventolin Hfa Inhaler - IH Q6H PRN SHORT OF BREATH/WHEEZING Docusate Sodium 100 mg 08/11/17 18:45 08/14/17 09:35 Colace - PO 100 mg DAILY MARISELA Administration Gabapentin 300 mg 08/12/17 22:00 08/14/17 09:35 Neurontin - PO 300 mg BID MARISELA Administration Lactated Ringer's 1,000 mls @ 100 mls/hr 08/11/17 14:00 08/14/17 00:13 Lactated Ringers Solution IV 100 mls/hr ASDIR MARISELA Administration Ketorolac Tromethamine 30 mg 08/13/17 20:00 08/14/17 11:56 Toradol Injection - IVPUSH 08/18/17 19:59 30 mg Q8H MARISELA Administration Loratadine 10 mg 08/11/17 18:45 08/14/17 09:35 Claritin - PO 10 mg DAILY MARISELA Administration Lorazepam 0.5 mg 08/11/17 18:43 08/14/17 16:00 Ativan Injection - IVPUSH 0.5 mg Q6H PRN Administration ANXIETY Morphine Sulfate 5 mg 08/14/17 03:43 08/14/17 18:24 Morphine Injection - IVPUSH 5 mg Q6H PRN Administration PAIN LEVEL 6-10 Ondansetron HCl 4 mg 08/11/17 13:58 08/12/17 09:50 Zofran Injection IVPUSH 4 mg Q6H PRN Administration NAUSEA AND/OR VOMITING Oxycodone HCl 5 mg 08/13/17 10:34 Roxicodone - PO Q3H PRN PAIN LEVEL 1-5 Oxycodone HCl 10 mg 08/13/17 10:34 08/14/17 14:56 Roxicodone - PO 10 mg Q3H PRN Administration PAIN LEVEL 6-10 Oxycodone HCl 10 mg 08/13/17 10:45 08/14/17 09:36 Oxycontin - PO 08/16/17 10:34 10 mg BID MARISELA Administration Polyethylene Glycol 17 gm 08/13/17 11:30 08/14/17 09:41 Miralax (For Daily Use) - PO 17 grams DAILY MARISELA Administration Fluticasone/Salmeterol 1 puff 08/11/17 22:00 08/14/17 09:35 Advair 100mcg/50mcg - IH 1 puff BID MARISELA Administration Senna 2 tab 08/13/17 11:17 Senna - PO HS PRN CONSTIPATION Zolpidem Tartrate 10 mg 08/11/17 22:00 08/13/17 21:07 Ambien - PO 10 mg HS PRN Administration INSOMNIA Home Medications Medication Instructions Recorded Acetaminophen/Caffeine/Butalb 1 tab PO Q4H 08/07/17 [Fioricet -] Albuterol Sulfate Inhaler - 1 - 2 inh PO QID 08/07/17 [Ventolin Hfa Inhaler -] Alprazolam [Xanax] 2 mg PO PRN 08/07/17 Amoxicillin - [Amoxicillin 875mg 875 mg PO BID 08/07/17 Tablet -] Loratadine [Claritin -] 10 mg PO DAILY 08/07/17 Oxycodone HCl [Oxycodone HCl ER] 30 mg PO BID 08/07/17 Zolpidem Tartrate 10 mg PO HS 08/07/17
--- NOTE | 2017-08-14 12:09 | PN ---
Progress Note (short form) - Note Progress Note: Pain issues overnight. No CP or SOB. NAD on RA. OBJECTIVE: Intake & Output 08/11/17 08/12/17 08/13/17 08/14/17 23:59 23:59 23:59 23:59 Intake Total 2950 2550 2050 400 Output Total 1840 1930 1925 Balance 1110 620 125 400 Last Vital Signs Temp Pulse Resp BP Pulse Ox 98.8 F 105 H 20 109/61 97 08/14/17 06:30 08/14/17 06:30 08/14/17 06:30 08/14/17 06:30 08/13/17 20:41 Active Medications Acetaminophen (Tylenol -) 650 mg PO Q6H PRN PRN Reason: FEVER Last Admin: 08/13/17 15:44 Dose: 650 mg Acetaminophen (Ofirmev Injection -) 1,000 mg IVPB Q6H PRN PRN Reason: PAIN LEVEL 7 - 10 Last Admin: 08/13/17 18:06 Dose: 1,000 mg Albuterol Sulfate (Ventolin 0.083% Nebulizer Soln -) 1 amp NEB Q4H PRN PRN Reason: SHORT OF BREATH/WHEEZING Albuterol Sulfate (Ventolin Hfa Inhaler -) 2 puff IH Q6H PRN PRN Reason: SHORT OF BREATH/WHEEZING Docusate Sodium (Colace -) 100 mg PO DAILY [facility] Last Admin: 08/14/17 09:35 Dose: 100 mg Gabapentin (Neurontin -) 300 mg PO BID [facility] Last Admin: 08/14/17 09:35 Dose: 300 mg Lactated Ringer's (Lactated Ringers Solution) 1,000 mls @ 100 mls/hr IV ASDIR [facility] Last Admin: 08/14/17 00:13 Dose: 100 mls/hr Ketorolac Tromethamine (Toradol Injection -) 30 mg IVPUSH Q8H [facility] Stop: 08/18/17 19:59 Last Admin: 08/14/17 11:56 Dose: 30 mg Loratadine (Claritin -) 10 mg PO DAILY [facility] Last Admin: 08/14/17 09:35 Dose: 10 mg Lorazepam (Ativan Injection -) 0.5 mg IVPUSH Q6H PRN PRN Reason: ANXIETY Last Admin: 08/12/17 22:04 Dose: 0.5 mg Morphine Sulfate (Morphine Injection -) 5 mg IVPUSH Q6H PRN PRN Reason: PAIN LEVEL 6-10 Last Admin: 08/14/17 09:35 Dose: 5 mg Ondansetron HCl (Zofran Injection) 4 mg IVPUSH Q6H PRN PRN Reason: NAUSEA AND/OR VOMITING Last Admin: 08/12/17 09:50 Dose: 4 mg Oxycodone HCl (Roxicodone -) 5 mg PO Q3H PRN PRN Reason: PAIN LEVEL 1-5 Oxycodone HCl (Roxicodone -) 10 mg PO Q3H PRN PRN Reason: PAIN LEVEL 6-10 Last Admin: 08/14/17 07:30 Dose: 10 mg Oxycodone HCl (Oxycontin -) 10 mg PO BID [facility] Stop: 08/16/17 10:34 Last Admin: 08/14/17 09:36 Dose: 10 mg Polyethylene Glycol (Miralax (For Daily Use) -) 17 gm PO DAILY [facility] Last Admin: 08/14/17 09:41 Dose: 17 grams Fluticasone/Salmeterol (Advair 100mcg/50mcg -) 1 puff IH BID [facility] Last Admin: 08/14/17 09:35 Dose: 1 puff Senna (Senna -) 2 tab PO HS PRN PRN Reason: CONSTIPATION Zolpidem Tartrate (Ambien -) 10 mg PO HS PRN PRN Reason: INSOMNIA Last Admin: 08/13/17 21:07 Dose: 10 mg Gen: NAD at rest Heart: RRR Lung: decreased breath sounds at the bases Abd: soft, nontender Ext: no edema Laboratory Results - last 24 hr 08/14/17 07:45 Sodium 138 Potassium 3.6 Chloride 102 Carbon Dioxide 31 Anion Gap 5 L BUN 10 Creatinine 0.9 D Random Glucose 86 Calcium 7.5 L Phosphorus 3.3 D Magnesium 2.0 ASSESSMENT AND PLAN: Lumbar Spinal Stenosis s/p L4-S1 Laminectomies/Fusions Asthma Anxiety PTSD/Anxiety - pain control - incentive spirometry - bowel regimen - rehab/PT - monitor drain output - monitor H/H - activity/garcia/PO per surgery - mechanical DVT prophylaxis Dr Schroeder
[2017-08-14] MEDS: LORazepam 2 MG/ML SDV VIAL IVPUSH PRN (16:00)
[2017-08-14] MEDS: ZOLPIDEM TARTRATE 5 MG TABLET PO PRN (21:02)
[2017-08-15] MEDS: MORPHINE SULFATE 10 MG/1 ML *VIAL IVPUSH PRN ×2 (02:38→08:33)
[2017-08-15] MEDS: KETOROLAC TROMETHAMINE 30 MG/1 ML VIAL IVPUSH SCH ×2 (05:00→12:44)
--- NOTE | 2017-08-15 09:41 | PN ---
<Ventura Corona - Last Filed: 08/15/17 10:17> Physical Exam: SUBJECTIVE: Patient seen and examined No acute events overnight. Pain is well controlled this morning. Patient walking around room. Denies BM. Passing flatus. OBJECTIVE: Vital Signs Period Temp Pulse Resp BP Sys/Garcia Pulse Ox Last 24 Hr 97.9 F-99.1 F 89-108 18-20 109-114/60-75 97-98 GENERAL: Awake, alert, and fully oriented, in no acute distress. LUNGS: Breath sounds equal, clear to auscultation bilaterally. No wheezes, and no crackles. No accessory muscle use. HEART: Tachycardic, Normal rhythm, normal S1 and S2 without murmur, rub or gallop. ABD: soft nt/nd NEURO AND MSK PER DR. BURNS'S REQUEST Active Medications Generic Name Dose Route Start Last Admin Trade Name Freq PRN Reason Stop Dose Admin Acetaminophen 650 mg 08/12/17 13:36 08/13/17 15:44 Tylenol - PO 650 mg Q6H PRN Administration FEVER Acetaminophen 1,000 mg 08/12/17 15:00 08/13/17 18:06 Ofirmev Injection - IVPB 1,000 mg Q6H PRN Administration PAIN LEVEL 7 - 10 Albuterol Sulfate 1 amp 08/11/17 19:00 Ventolin 0.083% Nebulizer Soln - NEB Q4H PRN SHORT OF BREATH/WHEEZING Albuterol Sulfate 2 puff 08/12/17 01:48 Ventolin Hfa Inhaler - IH Q6H PRN SHORT OF BREATH/WHEEZING Docusate Sodium 100 mg 08/11/17 18:45 08/14/17 09:35 Colace - PO 100 mg DAILY MARISELA Administration Gabapentin 300 mg 08/12/17 22:00 08/14/17 21:02 Neurontin - PO 300 mg BID MARISELA Administration Lactated Ringer's 1,000 mls @ 100 mls/hr 08/11/17 14:00 08/14/17 00:13 Lactated Ringers Solution IV 100 mls/hr ASDIR MARISELA Administration Ketorolac Tromethamine 30 mg 08/13/17 20:00 08/15/17 05:00 Toradol Injection - IVPUSH 08/18/17 19:59 30 mg Q8H MARISELA Administration Loratadine 10 mg 08/11/17 18:45 08/14/17 09:35 Claritin - PO 10 mg DAILY MARISELA Administration Lorazepam 0.5 mg 08/11/17 18:43 08/14/17 16:00 Ativan Injection - IVPUSH 0.5 mg Q6H PRN Administration ANXIETY Morphine Sulfate 5 mg 08/14/17 03:43 08/15/17 08:33 Morphine Injection - IVPUSH 5 mg Q6H PRN Administration PAIN LEVEL 6-10 Ondansetron HCl 4 mg 08/11/17 13:58 08/12/17 09:50 Zofran Injection IVPUSH 4 mg Q6H PRN Administration NAUSEA AND/OR VOMITING Oxycodone HCl 5 mg 08/13/17 10:34 Roxicodone - PO Q3H PRN PAIN LEVEL 1-5 Oxycodone HCl 10 mg 08/13/17 10:34 08/14/17 14:56 Roxicodone - PO 10 mg Q3H PRN Administration PAIN LEVEL 6-10 Oxycodone HCl 10 mg 08/13/17 10:45 08/14/17 21:02 Oxycontin - PO 08/16/17 10:34 10 mg BID MARISELA Administration Polyethylene Glycol 17 gm 08/13/17 11:30 08/14/17 09:41 Miralax (For Daily Use) - PO 17 grams DAILY MARISELA Administration Fluticasone/Salmeterol 1 puff 08/11/17 22:00 08/14/17 21:02 Advair 100mcg/50mcg - IH 1 puff BID MARISELA Administration Senna 2 tab 08/13/17 11:17 Senna - PO HS PRN CONSTIPATION Zolpidem Tartrate 10 mg 08/11/17 22:00 08/14/17 21:02 Ambien - PO 10 mg HS PRN Administration INSOMNIA ASSESSMENT/PLAN: 46 year old M with pmh of back pain s/p disectomy of L3-S1 in 2011, chronic sinusitis s/p 2 surgeries in 2002 and 2008, and asthma presented post op day 3 s /p L4-S1 laminectomy. #Post Op day 3 s/p L4-S1 laminectomy. -Neurontin 300 bid, as well as Morphine, Oxycodone, Toradol prn for pain control -Zofran PRN -NS @ 100 cc/hr -I/o -Incentive spirometer -PT when able -OOB as tolerated, weight bearing as tolerated #Constipation -colace, senna, and miralax -IVF @ 100 cc/hr #Asthma -Albuterol nebs prn -advair bid #Anxiety -Ativan 0.5 mg prn #Insomnia -Ambien as needed #Fen/GI -IVF LR @ 100 cc/hr -wnl -Clear liquid PPx: scds Management will be continued per Dr. Burns Visit type - Emergency Visit Emergency Visit: Yes ED Registration Date: 08/11/17 Care time: The patient presented to the Emergency Department on the above date and was hospitalized for further evaluation of their emergent condition. - New Patient This patient is new to me today: No - Critical Care Critical Care patient: No <RaheelparishMilad morales - Last Filed: 08/15/17 10:37> Physical Exam: Patient is seen. Patient is comfortable with no acute distress. No fever or chill, no shortness of breath. No nausea or vomiting. No fever or chills. Vital Signs Temperature 97.9 F 08/15/17 08:00 Pulse Rate 107 H 08/15/17 08:00 Respiratory Rate 18 08/15/17 08:00 Blood Pressure 110/75 08/15/17 08:00 O2 Sat by Pulse Oximetry (%) 98 08/15/17 09:00 CBCD WBC 7.9 K/mm3 (4.0-10.0) 08/13/17 06:20 RBC 3.88 M/mm3 (4.00-5.60) L 08/13/17 06:20 Hgb 10.5 GM/dL (11.7-16.9) L D 08/13/17 06:20 Hct 30.7 % (35.4-49) L 08/13/17 06:20 MCV 79.1 fl (80-96) L 08/13/17 06:20 MCHC 34.1 g/dl (32.0-35.9) 08/13/17 06:20 RDW 13.5 % (11.9-15.9) 08/13/17 06:20 Plt Count 108 K/MM3 (134-434) L 08/13/17 06:20 MPV 10.0 fl (7.5-11.1) 08/13/17 06:20 CMP Sodium 138 mmol/L (136-145) 08/14/17 07:45 Potassium 3.6 mmol/L (3.5-5.1) 08/14/17 07:45 Chloride 102 mmol/L (98-107) 08/14/17 07:45 Carbon Dioxide 31 mmol/L (21-32) 08/14/17 07:45 Anion Gap 5 (8-16) L 08/14/17 07:45 BUN 10 mg/dL (7-18) 08/14/17 07:45 Creatinine 0.9 mg/dL (0.7-1.3) D 08/14/17 07:45 Creat Clearance w eGFR > 60 (>60) 08/11/17 18:21 Random Glucose 86 mg/dL (74-106) 08/14/17 07:45 Calcium 7.5 mg/dL (8.5-10.1) L 08/14/17 07:45 Total Bilirubin 1.0 mg/dL (0.2-1.0) 08/11/17 18:21 AST 33 U/L (15-37) 08/11/17 18:21 ALT 36 U/L (12-78) 08/11/17 18:21 Alkaline Phosphatase 72 U/L (45-117) 08/11/17 18:21 Total Protein 5.3 g/dl (6.4-8.2) L 08/11/17 18:21 Albumin 3.1 g/dl (3.4-5.0) L 08/11/17 18:21 Current Medications Generic Name Dose Route Start Last Admin Trade Name Freq PRN Reason Stop Dose Admin Acetaminophen 650 mg 08/12/17 13:36 08/13/17 15:44 Tylenol - PO 650 mg Q6H PRN Administration FEVER Acetaminophen 1,000 mg 08/12/17 15:00 08/13/17 18:06 Ofirmev Injection - IVPB 1,000 mg Q6H PRN Administration PAIN LEVEL 7 - 10 Albuterol Sulfate 1 amp 08/11/17 19:00 Ventolin 0.083% Nebulizer Soln - NEB Q4H PRN SHORT OF BREATH/WHEEZING Albuterol Sulfate 2 puff 08/12/17 01:48 Ventolin Hfa Inhaler - IH Q6H PRN SHORT OF BREATH/WHEEZING Docusate Sodium 100 mg 08/11/17 18:45 08/14/17 09:35 Colace - PO 100 mg DAILY MARISELA Administration Gabapentin 300 mg 08/12/17 22:00 08/14/17 21:02 Neurontin - PO 300 mg BID MARISELA Administration Lactated Ringer's 1,000 mls @ 100 mls/hr 08/11/17 14:00 08/14/17 00:13 Lactated Ringers Solution IV 100 mls/hr ASDIR MARISELA Administration Ketorolac Tromethamine 30 mg 08/13/17 20:00 08/15/17 05:00 Toradol Injection - IVPUSH 08/18/17 19:59 30 mg Q8H MARISELA Administration Loratadine 10 mg 08/11/17 18:45 08/14/17 09:35 Claritin - PO 10 mg DAILY MARISELA Administration Lorazepam 0.5 mg 08/11/17 18:43 08/14/17 16:00 Ativan Injection - IVPUSH 0.5 mg Q6H PRN Administration ANXIETY Morphine Sulfate 5 mg 08/14/17 03:43 08/15/17 08:33 Morphine Injection - IVPUSH 5 mg Q6H PRN Administration PAIN LEVEL 6-10 Ondansetron HCl 4 mg 08/11/17 13:58 08/12/17 09:50 Zofran Injection IVPUSH 4 mg Q6H PRN Administration NAUSEA AND/OR VOMITING Oxycodone HCl 5 mg 08/13/17 10:34 Roxicodone - PO Q3H PRN PAIN LEVEL 1-5 Oxycodone HCl 10 mg 08/13/17 10:34 08/14/17 14:56 Roxicodone - PO 10 mg Q3H PRN Administration PAIN LEVEL 6-10 Oxycodone HCl 10 mg 08/13/17 10:45 08/14/17 21:02 Oxycontin - PO 08/16/17 10:34 10 mg BID MARISELA Administration Polyethylene Glycol 17 gm 08/13/17 11:30 08/14/17 09:41 Miralax (For Daily Use) - PO 17 grams DAILY MARISELA Administration Fluticasone/Salmeterol 1 puff 08/11/17 22:00 08/14/17 21:02 Advair 100mcg/50mcg - IH 1 puff BID MARISELA Administration Senna 2 tab 08/13/17 11:17 Senna - PO HS PRN CONSTIPATION Zolpidem Tartrate 10 mg 08/11/17 22:00 08/14/17 21:02 Ambien - PO 10 mg HS PRN Administration INSOMNIA Home Medications Medication Instructions Recorded Acetaminophen/Caffeine/Butalb 1 tab PO Q4H 08/07/17 [Fioricet -] Albuterol Sulfate Inhaler - 1 - 2 inh PO QID 08/07/17 [Ventolin Hfa Inhaler -] Alprazolam [Xanax] 2 mg PO PRN 08/07/17 Amoxicillin - [Amoxicillin 875mg 875 mg PO BID 08/07/17 Tablet -] Loratadine [Claritin -] 10 mg PO DAILY 08/07/17 Oxycodone HCl [Oxycodone HCl ER] 30 mg PO BID 08/07/17 Zolpidem Tartrate 10 mg PO HS 08/07/17 PE: generally comfortable, nice gentleman Neuro/Musculasketal deferred as per 's request. A/P: Patient is a 46 year old Male with pmh of back pain s/p disectomy of L3-S1 in 2011, asthma, presented for L4-S1 laminectomy. #Post Op day 4 s/p L4-S1 laminectomy. continue pain meds as per Incentive spirometer, ortho management per #Constipation sice patient on pain meds continue colace, senna, and miralax -IVF @ 100 cc/hr #Asthma on Albuterol nebs prn, advair bid #Hx of Anxiety on Ativan 0.5 mg prn , patient takes xanax at come,. upon discharge will continue his Xanax #Insomnia: continue home Ambien as needed DVT Px: SCds and further managment per Ortho.
[2017-08-15] MEDS ORDERED: PT OWN MED DRAWER 7, Y5N ONE (10:30)
[2017-08-15] MEDS: DOCUSATE SODIUM 100 MG CAPSULE (FP) PO SCH (10:40)
[2017-08-15] MEDS: oxyCODONE HCL 10 MG SUSTAINED ACTING TABLET PO SCH ×2 (10:41→21:42)
[2017-08-15] MEDS: POLYETHYLENE GLYCOL 3350 119 GM BTL PO SCH (10:41)
[2017-08-15] MEDS: LORATADINE 10 MG TABLET PO SCH (10:41)
[2017-08-15] MEDS: GABAPENTIN 300 MG CAPSULE (FP) PO SCH ×2 (10:41→21:41)
[2017-08-15] MEDS: FLUTICASONE/SALMETEROL 100 MCG/50 MCG DISKUS IH SCH ×2 (10:43→21:42)
[2017-08-15] MEDS: LACTATED RINGERS SOLUTION 1,000 ML IV SCH (13:30)
[2017-08-15] MEDS: oxyCODONE HCL 5 MG TABLET PO PRN ×2 (13:58→17:59)
[2017-08-15] MEDS: LORazepam 2 MG/ML SDV VIAL IVPUSH PRN ×2 (16:01→22:55)
--- NOTE | 2017-08-15 18:26 | PN ---
Progress Note (short form) - Note Progress Note: 46M s/p L4, L5, S1 laminectomies, L4-5 & L5-S1 PLIF, L4-S1 PISF POD #4. (+) Incisional back pain. (+) Baseline B/L LE radiculopathic symptoms. No acute events. Pt. denies recent history of headaches, chest pain, shortness of breath, nausea , vomiting, chills, & sweats. (+) Voiding; (+) Flatus; (-) BM. (+) Walked in hallway. All labs and vitals reviewed. PE: AAO x 3, NAD. Spine: Dressing C/D/I. (+) HemoVac drain intact & in place. B/L LE sensorimotor & vascular exams at baseline. 46M s/p L4, L5, S1 laminectomies, L4-5 & L5-S1 PLIF, L4-S1 PISF POD #4. -Pain control. -Mechanical DVT PPx. only: MALLORY's, SCD's. -Incentive spirometry; aggressive pulmonary toilet. -PT/OT/Rehab, OOB. -WBAT B/L LE. -f/u drain output. -Advance diet as tolerated. -Care per medical hospitalist team. -Discharge planning: please order hospital bed to patient's home. -Will follow. Gael Phipps MD (Orthopaedic Surgery).
[2017-08-15] MEDS: ACETAMINOPHEN 325 MG TABLET (FP) PO SCH (20:11)
[2017-08-16] MEDS: ACETAMINOPHEN 325 MG TABLET (FP) PO SCH ×5 (00:48→18:52)
[2017-08-16] MEDS: ZOLPIDEM TARTRATE 5 MG TABLET PO PRN (00:49)
[2017-08-16] MEDS: oxyCODONE HCL 5 MG TABLET PO PRN ×5 (05:36→20:23)
[2017-08-16] MEDS: POLYETHYLENE GLYCOL 3350 119 GM BTL PO SCH (09:30)
[2017-08-16] MEDS: FLUTICASONE/SALMETEROL 100 MCG/50 MCG DISKUS IH SCH ×2 (09:30→22:10)
[2017-08-16] MEDS: LORATADINE 10 MG TABLET PO SCH (09:31)
[2017-08-16] MEDS: oxyCODONE HCL 10 MG SUSTAINED ACTING TABLET PO SCH ×2 (09:31→22:09)
[2017-08-16] MEDS: GABAPENTIN 300 MG CAPSULE (FP) PO SCH ×2 (09:31→22:10)
[2017-08-16] MEDS: LORazepam 2 MG/ML SDV VIAL IVPUSH PRN ×2 (14:05→23:16)
--- NOTE | 2017-08-16 17:49 | PN ---
Progress Note (short form) - Note Progress Note: POD #5 Feels better radiculopathic pain increased but no motor or sensory change. Vitals stable Mobilizing readilly. prefers to stand. Neuro fully intact Wound dry Drain removed New dressing applied Plan D/C home Pain management PT Walk lie down minimal sitting See in office 2 weeks
--- NOTE | 2017-08-16 19:36 | PN ---
Physical Exam: SUBJECTIVE: Patient seen and examined Patient is comfortable with no acute distress, no shortness of breath. OBJECTIVE: Vital Signs Temperature 98.7 F 08/16/17 08:00 Pulse Rate 89 08/16/17 08:00 Respiratory Rate 20 08/16/17 08:00 Blood Pressure 120/77 08/16/17 08:00 O2 Sat by Pulse Oximetry (%) 98 08/16/17 08:00 GENERAL: The patient is awake, alert, and fully oriented, in no acute distress. HEAD: Normal with no signs of trauma. EYES: PERRL, extraocular movements intact, sclera anicteric, conjunctiva clear. No ptosis. ENT: Ears normal, nares patent, oropharynx clear without exudates, moist mucous membranes. NECK: Trachea midline, full range of motion, supple. LUNGS: Breath sounds equal, clear to auscultation bilaterally, no wheezes, no crackles, no accessory muscle use. HEART: Regular rate and rhythm, S1, S2 without murmur, rub or gallop. ABDOMEN: Soft, nontender, nondistended, normoactive bowel sounds, no guarding, no rebound, no hepatosplenomegaly, no masses. EXTREMITIES: 2+ pulses, warm, well-perfused, no edema. NEUROLOGICAL: Normal speech, gait not observed. Neuro exam per 's exam PSYCH: Normal mood, normal affect. SKIN: Warm, dry, normal turgor, no rashes or lesions noted Home Medications Medication Instructions Recorded Acetaminophen/Caffeine/Butalb 1 tab PO Q4H 08/07/17 [Fioricet -] Albuterol Sulfate Inhaler - 1 - 2 inh PO QID 08/07/17 [Ventolin Hfa Inhaler -] Alprazolam [Xanax] 2 mg PO PRN 08/07/17 Amoxicillin - [Amoxicillin 875mg 875 mg PO BID 08/07/17 Tablet -] Loratadine [Claritin -] 10 mg PO DAILY 08/07/17 Oxycodone HCl [Oxycodone HCl ER] 30 mg PO BID 08/07/17 Zolpidem Tartrate 10 mg PO HS 08/07/17 Active Medications Generic Name Dose Route Start Last Admin Trade Name Freq PRN Reason Stop Dose Admin Acetaminophen 650 mg 08/15/17 19:45 03/31/18 18:52 Tylenol - PO Not Given Q6HPO MARISELA Albuterol Sulfate 1 amp 08/11/17 19:00 Ventolin 0.083% Nebulizer Soln - NEB Q4H PRN SHORT OF BREATH/WHEEZING Albuterol Sulfate 2 puff 08/12/17 01:48 Ventolin Hfa Inhaler - IH Q6H PRN SHORT OF BREATH/WHEEZING Gabapentin 300 mg 08/12/17 22:00 08/16/17 09:31 Neurontin - PO 300 mg BID MARISELA Administration Loratadine 10 mg 08/11/17 18:45 08/16/17 09:31 Claritin - PO 10 mg DAILY MARISELA Administration Lorazepam 1 mg 08/15/17 19:47 08/16/17 14:05 Ativan Injection - IVPUSH 1 mg TID PRN Administration ANXIETY Ondansetron HCl 4 mg 08/11/17 13:58 08/12/17 09:50 Zofran Injection IVPUSH 4 mg Q6H PRN Administration NAUSEA AND/OR VOMITING Oxycodone HCl 10 mg 08/13/17 10:34 08/16/17 16:17 Roxicodone - PO 10 mg Q3H PRN Administration PAIN LEVEL 6-10 Oxycodone HCl 20 mg 08/15/17 22:00 08/16/17 09:31 Oxycontin - PO 20 mg BID MARISELA Administration Polyethylene Glycol 17 gm 08/13/17 11:30 08/16/17 09:30 Miralax (For Daily Use) - PO 17 grams DAILY MARISELA Administration Fluticasone/Salmeterol 1 puff 08/11/17 22:00 08/16/17 09:30 Advair 100mcg/50mcg - IH 1 puff BID MARISELA Administration Senna 2 tab 08/13/17 11:17 Senna - PO HS PRN CONSTIPATION Zolpidem Tartrate 10 mg 08/11/17 22:00 08/16/17 00:49 Ambien - PO 10 mg HS PRN Administration INSOMNIA CBCD WBC 7.9 K/mm3 (4.0-10.0) 08/13/17 06:20 RBC 3.88 M/mm3 (4.00-5.60) L 08/13/17 06:20 Hgb 10.5 GM/dL (11.7-16.9) L D 08/13/17 06:20 Hct 30.7 % (35.4-49) L 08/13/17 06:20 MCV 79.1 fl (80-96) L 08/13/17 06:20 MCHC 34.1 g/dl (32.0-35.9) 08/13/17 06:20 RDW 13.5 % (11.9-15.9) 08/13/17 06:20 Plt Count 108 K/MM3 (134-434) L 08/13/17 06:20 MPV 10.0 fl (7.5-11.1) 08/13/17 06:20 CMP Sodium 138 mmol/L (136-145) 08/14/17 07:45 Potassium 3.6 mmol/L (3.5-5.1) 08/14/17 07:45 Chloride 102 mmol/L (98-107) 08/14/17 07:45 Carbon Dioxide 31 mmol/L (21-32) 08/14/17 07:45 Anion Gap 5 (8-16) L 08/14/17 07:45 BUN 10 mg/dL (7-18) 08/14/17 07:45 Creatinine 0.9 mg/dL (0.7-1.3) D 08/14/17 07:45 Creat Clearance w eGFR > 60 (>60) 08/11/17 18:21 Random Glucose 86 mg/dL (74-106) 08/14/17 07:45 Calcium 7.5 mg/dL (8.5-10.1) L 08/14/17 07:45 Total Bilirubin 1.0 mg/dL (0.2-1.0) 08/11/17 18:21 AST 33 U/L (15-37) 08/11/17 18:21 ALT 36 U/L (12-78) 08/11/17 18:21 Alkaline Phosphatase 72 U/L (45-117) 08/11/17 18:21 Total Protein 5.3 g/dl (6.4-8.2) L 08/11/17 18:21 Albumin 3.1 g/dl (3.4-5.0) L 08/11/17 18:21 ASSESSMENT/PLAN: 46 year old M with pmh of back pain s/p disectomy of L3-S1 in 2011, chronic sinusitis s/p 2 surgeries in 2002 and 2008, and asthma presented post op day 3 s /p L4-S1 laminectomy. #Post Op day 4 s/p L4-S1 laminectomy.Continue current therapy as per #Constipation continue colace, senna, and miralax #Asthma Albuterol nebs prn, advair bid #Anxiety Ativan 0.5 mg prn #Insomnia Ambien as needed DVT px: SCD Visit type - Emergency Visit Emergency Visit: Yes ED Registration Date: 08/11/17 Care time: The patient presented to the Emergency Department on the above date and was hospitalized for further evaluation of their emergent condition. - New Patient This patient is new to me today: No - Critical Care Critical Care patient: No - Discharge Referral Referred to [facility] No
[2017-08-17] MEDS: ACETAMINOPHEN 325 MG TABLET (FP) PO SCH ×4 (00:22→18:35)
[2017-08-17] MEDS: ZOLPIDEM TARTRATE 5 MG TABLET PO PRN ×2 (00:26→22:07)
[2017-08-17] MEDS: oxyCODONE HCL 5 MG TABLET PO PRN ×6 (02:45→20:42)
[2017-08-17] MEDS ORDERED: PT OWN MED DRAWER 7, Y5N ONE (09:00)
[2017-08-17] MEDS: LORATADINE 10 MG TABLET PO SCH (09:07)
[2017-08-17] MEDS: oxyCODONE HCL 10 MG SUSTAINED ACTING TABLET PO SCH ×2 (09:07→22:07)
[2017-08-17] MEDS: GABAPENTIN 300 MG CAPSULE (FP) PO SCH ×2 (09:07→22:07)
[2017-08-17] MEDS: POLYETHYLENE GLYCOL 3350 119 GM BTL PO SCH (09:08)
[2017-08-17] MEDS: FLUTICASONE/SALMETEROL 100 MCG/50 MCG DISKUS IH SCH ×2 (09:08→22:09)
--- NOTE | 2017-08-17 13:42 | DS ---
Physical Exam: SUBJECTIVE: Patient seen and examined s/p spinal surgery. Pain improved. Ambulating. PO intake, +BM. Still with numbness and tingling as pre op. OBJECTIVE: Vital Signs Period Temp Pulse Resp BP Sys/Garcia Pulse Ox Last 24 Hr 98.5 F-98.9 F 78-88 20-20 120-122/68-80 98-98 PHYSICAL EXAM GENERAL: The patient is awake, alert, and fully oriented, in no acute distress. LUNGS: Breath sounds equal, clear to auscultation bilaterally, no wheezes, no crackles, no accessory muscle use. HEART: Regular rate and rhythm, S1, S2 without murmur, rub or gallop. ABDOMEN: Soft, nontender, nondistended, normoactive bowel sounds, no guarding, no rebound, no hepatosplenomegaly, no masses. EXTREMITIES: 2+ pulses, warm, well-perfused, no edema. NEUROLOGICAL: Cranial nerves II through XII grossly intact. Normal speech, gait not observed. PSYCH: Normal mood, normal affect. SKIN: Warm, dry, normal turgor, no rashes or lesions noted. LABS HOSPITAL COURSE: Date of Admission:08/11/17 Date of Discharge: 08/17/17 This is a 46 year old male with a medical history of asthma, chronic sinusitis, anxiety, PTSD, chronic lower back pain with radiculopathy s/p discectomy in 2011. POD#6 L4-S1 laminectomies, decompression and fusion. Plan for physical therapy. Pain control. Ambulating. Advise walking and lying down, limit sitting. Will follow up with neurosurgeon in two weeks in office. Minutes to complete discharge: 35 Discharge Summary Reason For Visit: INTVRT DISC DISORDERS W RADICULOPATHY, THORACIC RE Current Active Problems Back pain (Acute) Lumbar spinal stenosis (Acute) Anxiety (Chronic) Asthma (Chronic) H/O spinal fusion (Chronic) Insomnia (Chronic) PTSD (post-traumatic stress disorder) (Chronic) Previous back surgery (Chronic) Sinusitis (Chronic) Condition: Improved - Instructions Diet, Activity, Other Instructions: Mr. Germain, you are healing well from your back surgery. Recommendation as per surgeon: -physical therapy -pain control -walking, lie down -minimal sitting -follow up in office in two weeks Please follow up with your primary physician with in one week for a follow up from hospital visit. Referrals: Adal Phipps MD [Staff Physician] - 2 Weeks Disposition: HOME - Home Medications Comprehensive Discharge Medication List: Ambulatory Orders Albuterol Sulfate Inhaler - [Ventolin HFA Inhaler -] 1 - 2 inh PO QID 08/07/17 Alprazolam [Xanax] 2 mg PO PRN 08/07/17 Loratadine [Claritin -] 10 mg PO DAILY 08/07/17 Zolpidem Tartrate 10 mg PO HS 08/07/17 Acetaminophen [Tylenol .Regular Strength -] 650 mg PO Q6HPO tablet 08/17/17 Albuterol 0.083% Nebulizer Phylicia [Ventolin 0.083% Nebulizer Soln -] 1 amp NEB Q4H PRN amp 08/17/17 Gabapentin [Neurontin -] 300 mg PO BID 60 Days #60 mg 08/17/17 Polyethylene Glycol 3350 [Miralax 119 gm Btl -] 17 gm PO DAILY bottle 08/17/17 Salmeterol/Fluticasone [Advair 100Mcg/50Mcg -] 1 puff IH BID inhaler 08/17/17 Sennosides [Senna -] 2 tab PO HS PRN tablet 08/17/17 oxyCODONE SR [Oxycontin] 20 mg PO BID 5 Days #8 tab.er.12h MDD 40mg 08/17/17 This patient is new to me today: Yes Date on this admission: 08/17/17 Emergency Visit: Yes ED Registration Date: 08/11/17 Care time: The patient presented to the Emergency Department on the above date and was hospitalized for further evaluation of their emergent condition. Critical Care patient: No - Discharge Referral Referred to [facility] No
[2017-08-18] MEDS: oxyCODONE HCL 5 MG TABLET PO PRN ×3 (00:05→06:28)
[2017-08-18] MEDS: ACETAMINOPHEN 325 MG TABLET (FP) PO SCH ×3 (00:05→12:46)
[2017-08-18] MEDS ORDERED: PT OWN MED DRAWER 7, Y5N ONE (09:25)
[2017-08-18] MEDS: oxyCODONE HCL 10 MG SUSTAINED ACTING TABLET PO SCH (09:30)
[2017-08-18] MEDS: LORATADINE 10 MG TABLET PO SCH (09:30)
[2017-08-18] MEDS: GABAPENTIN 300 MG CAPSULE (FP) PO SCH (09:30)
[2017-08-18] MEDS: FLUTICASONE/SALMETEROL 100 MCG/50 MCG DISKUS IH SCH (09:33)
[2017-08-18] MEDS: POLYETHYLENE GLYCOL 3350 119 GM BTL PO SCH (09:33)
[2017-08-18] MEDS: LORazepam 2 MG/ML SDV VIAL IVPUSH PRN (11:08)
[2017-08-18 15:22] VITALS: BP 118/74; PULSE 85; TEMP 98.9
== END 2017-08-18 14:09 | disposition home or self-care (01) | DRG 460 ==
LOC: JSAMEDAYSX 06:18 → JICU 15:42 → J6S 08-13 12:46
PROVIDERS: ADMIT Orthopaedic Surgery Orthopaedic Surgery of the Spine; ATTEND Internal Medicine
PROC: 00NY0ZZ Release Lumbar Spinal Cord, Open Approach (ICD-10-PCS; 2017-08-11)
PROC: 0Q800ZZ Division of Lumbar Vertebra, Open Approach (ICD-10-PCS; 2017-08-11)
PROC: 0QB00ZZ Excision of Lumbar Vertebra, Open Approach (ICD-10-PCS; 2017-08-11)
PROC: 0SG30AJ Fusion of Lumbosacral Joint with Interbody Fusion Device, Posterior Approach, Anterior Column, Open Approach (ICD-10-PCS; principal; 2017-08-11 08:00)
DX: M48.07 Spinal stenosis, lumbosacral region (principal); F41.9 Anxiety disorder, unspecified; F43.10 Post-traumatic stress disorder, unspecified; M51.16 Intervertebral disc disorders with radiculopathy, lumbar region; J32.9 Chronic sinusitis, unspecified; G47.00 Insomnia, unspecified; G43.909 Migraine, unspecified, not intractable, without status migrainosus; K59.03 Drug induced constipation; T40.2X5A Adverse effect of other opioids, initial encounter; J45.40 Moderate persistent asthma, uncomplicated
CPT/HCPCS: 36415; 76000-TC-FY; 80048; 80053; 83735; 84100; 85025; 85027; 86850; 86900; 86901; 88304-TC; 94010; 94760; 97116-GP; 97161-GP; J0131; J1170; J1644